=== PATIENT | female | born 1945 | race Caucasian/White ===

== ENCOUNTER 2023-05-03 16:22 | Inpatient (IN) | payer OTHER, SELFPAY ==
[2023-05-03 16:33] VITALS: BP 124/82; PULSE 111; RESP 20; TEMP 36.5; O2SAT 94
--- NOTE | 2023-05-03 16:58 | CT_ITS ---
[address] [address] Patient Name: NORBERTO REICH MRN: [facility]:[id number] date: 1945 Sex: F Assigned Patient Location: MS Current Patient Location: MS Accession/Order Number: [id number] Exam Date: 05/03/2023 17:30 Report Date: 05/03/2023 18:00 At the request of: KAITLIN VAN Procedure: CT head/brain wo con EXAM: CT head/brain wo con; [id number] REASON FOR EXAM: facial droop COMPARISON: None. TECHNIQUE: Axial CT images of the head obtained without contrast. Multiplanar reformats generated at the scanner. Dose reduction technique used: Automated exposure control and/or adjustment of the mA and/or kV according to patient size and/or use of iterative reconstruction technique. FINDINGS: Parenchyma: -Moderate generalized cerebral volume loss. -No midline shift or mass effect. Basilar cisterns are patent. -No acute intracranial hemorrhage. -No loss of cortical frances-white differentiation to indicate acute cortical infarct. Extra-axial spaces: -Moderate CSF attenuation expansion of the extra axial space involving the anterior vertex and left anterior frontal lobe. -No acute extra-axial hemorrhage. Ventricles: Normal in size and symmetric. Paranasal sinuses: Visualized paranasal sinuses are clear. Mastoid air cells: Complete opacification of the right mastoid air cells and partial opacification on the left. Orbits: No acute abnormality. Osseous: No acute findings. Soft tissues: No acute abnormality. IMPRESSION: 1. No acute intracranial abnormality. 2. Moderate low-density expansion of the extra-axial space overlying bilateral frontal lobes. This may represent variant baseline appearance, chronic subdural hematomas, or subdural hygroma. No acute extra-axial hemorrhage. 3. Complete opacification of the right mastoid air cells and partial opacification on the left. Correlate for mastoiditis/otitis media. Electronically authenticated by: ALISSA FAIR Date: 05/03/2023 18:00
[2023-05-03 17:57] LABS: Amylase 65 U/L (25-115)
[2023-05-03 18:12] LABS: Creatine Kinase 162 U/L (26-192); Troponin I High Sensitivity 25.5 pg/mL (4.0-51.3)
[2023-05-03 18:18] LABS: Creatine Kinase MB 23.64 ng/mL (<=3.60)
[2023-05-03 18:22] LABS: Lactate/Lactic Acid 2.9 mmol/L (0.4-2.0)
[2023-05-03] MEDS: LACTATED RINGER'S SOLUTION 1,000 ML 125 ML IV (18:45)
[2023-05-03 18:50] VITALS: BMI 24.9
--- NOTE | 2023-05-03 19:07 | PC.NURSE ---
patients mucous membranes are very dry. Lips have dried blood on them. Scabbing, flaking.
[2023-05-03 19:37] LABS: Adenovirus F 40/41 NOT DETECTED (NOT DETECTE); Astrovirus NOT DETECTED (NOT DETECTE); Campylobacter NOT DETECTED (NOT DETECTE); Cryptosporidium NOT DETECTED (NOT DETECTE); Cyclospora cayetanensis NOT DETECTED (NOT DETECTE); E coli 0157 NOT DETECTED (NOT DETECTE); Entamoeba histolytica NOT DETECTED (NOT DETECTE); Enteroaggregative E.coli NOT DETECTED (NOT DETECTE); Enteropathogenic E.coli NOT DETECTED (NOT DETECTE); Enterotoxigenic E. coli NOT DETECTED (NOT DETECTE); Giardia lamblia NOT DETECTED (NOT DETECTE); Norovirus GI/GII NOT DETECTED (NOT DETECTE); Plesiomonas shigelloides NOT DETECTED (NOT DETECTE); Rotavirus A NOT DETECTED (NOT DETECTE); Salmonella NOT DETECTED (NOT DETECTE); Sapovirus NOT DETECTED (NOT DETECTE); Shiga-like toxin-producing E.C NOT DETECTED (NOT DETECTE); Shigella/Enteroinvasive E.coli NOT DETECTED (NOT DETECTE); Vibrio NOT DETECTED (NOT DETECTE); Vibrio cholerae NOT DETECTED (NOT DETECTE); Yersinia enterocolitica NOT DETECTED (NOT DETECTE)
[2023-05-03 19:47] VITALS: O2SAT 94
[2023-05-03 20:07] LABS: Occult Blood Positive
[2023-05-03 20:37] VITALS: RESP 16
[2023-05-03 22:00] VITALS: BP 120/78; PULSE 49; RESP 18; TEMP 36.4; O2SAT 91
[2023-05-03] MEDS: JUVEN PACKET 1 PACKET PO (22:23)
[2023-05-03] MEDS: POTASSIUM CHLORIDE 10 MEQ ER TABLET PO (22:23)
[2023-05-03] MEDS: SUCRALFATE 1 GM TABLET PO (22:23)
[2023-05-04] VITALS (7 sets, daily range): BP systolic 87–120; BP diastolic 59–73; PULSE 87–109; RESP 18–20; TEMP 36.5–36.6; O2SAT 92–95; BMI 24.9
[2023-05-04] MEDS: LACTATED RINGER'S SOLUTION 1,000 ML 125 ML IV ×2 (03:08→19:46)
[2023-05-04 06:28] LABS: Basophils Percent Auto 0.2 % (0.2-2.0); Eosinophils Percent Auto 0.1 % (0.9-7.0); Hematocrit 28.3 % (36.0-48.0); Hemoglobin 9.2 g/dL (12.0-16.0); Immature Granulocytes Abs Auto 0.28 10^3/uL (0.00-0.03); Immature Granulocytes Pct Auto 2.3 % (0.0-0.5); Lymphocytes Absolute Auto 0.7 10^3/uL (1.2-3.8); Lymphocytes Percent Auto 5.9 % (20.5-60.0); Mean Corpuscular HGB Conc 32.5 g/dL (29.9-35.2); Mean Corpuscular Hemoglobin 27.5 pg (26.7-34.0); Mean Corpuscular Volume 84.7 fL (81.0-99.0); Mean Platelet Volume 10.9 fL (9.5-13.5); Monocytes Absolute Auto 0.5 10^3/uL (0.3-0.8); Monocytes Percent Auto 4.4 % (1.7-12.0); Neutrophils Absolute Auto 10.6 10^3/uL (1.4-6.5); Neutrophils Percent Auto 87.1 % (43.0-75.0); Platelet Count 354 10^3/uL (150-450); Red Blood Count 3.34 10^6/uL (4.20-5.40); Red Cell Distribution Width 18.5 % (11.0-15.0); White Blood Count 12.2 10^3/uL (4.0-11.0)
[2023-05-04] MEDS: OMEPRAZOLE 40 MG CAPSULE.DR PO (06:35)
[2023-05-04 06:41] LABS: Ammonia 33 umol/L (11-32)
--- NOTE | 2023-05-04 09:43 | CT_ITS ---
[address] [address] Patient Name: NORBERTO REICH MRN: [id number] date: 1945 Sex: F Assigned Patient Location: MS Current Patient Location: MS Accession/Order Number: [id number] Exam Date: 05/04/2023 13:40 Report Date: 05/04/2023 14:29 At the request of: KAITLIN VAN Procedure: CT abdomen pelvis w con EXAMINATION: CT abdomen pelvis w con HISTORY: abd pain , liver mass, loss of appetite COMPARISON: MRI abdomen 04/17/2023, CT abdomen pelvis 04/12/2023 TECHNIQUE: Axial, Coronal, and Sagittal images were obtained without and/or with IV contrast as indicated by examination type. Dose reduction techniques were achieved by using automated exposure control and/or adjustment of mA and/or kV according to patient size and/or use of iterative reconstruction technique. FINDINGS: LUNG BASES: Partial consolidation the basilar segments of the lower lobes bilaterally. Small bilateral pleural effusions up to 1.0 cm in thickness on the right. LIVER: Enlarged liver with innumerable hypodense lesions filling the entire liver ranging from less than a centimeter to almost 4 cm in diameter. BILIARY: 2.8 cm calcified stone within the gallbladder, with additional stones suspected. Gallbladder wall thickness within the fundus is at upper limits of normal. No abnormal duct dilation. PANCREAS: No lesion, fluid collection, or abnormal duct dilatation. SPLEEN: No enlargement or focal lesion. ADRENALS: 2.0 cm right adrenal mass with areas of fat density favoring a benign adenoma. KIDNEYS: No mass, obstruction, or calcification. BOWEL/MESENTERY: Nasogastric tube within the stomach. No visible mass, obstruction, or bowel wall thickening. AORTA/VASCULAR: Marked atherosclerotic disease; no aneurysm or dissection. RETROPERITONEUM: No mass or adenopathy. LYMPH NODES: No appreciable adenopathy. URINARY BLADDER: No visible focal wall thickening, lesion, or calculus. PELVIC ORGANS: Hysterectomy. ABDOMINAL WALL: Extensive subcutaneous edema. BONES: Stable grade 2 retrolisthesis of L3 on 4. Multilevel degenerative disc disease and degenerative facet arthropathy of the lumbar spine. OTHER: Small amount of free fluid within the pelvis. IMPRESSION: 1. Moderate bibasilar pulmonary infiltrates versus atelectasis/consolidation, and small bilateral pleural effusions. 2. Markedly enlarged liver with innumerable lesions throughout suggestive of metastatic disease; not appreciably changed.Small amount of free fluid within the abdomen/pelvis is also noted. 3. Cholelithiasis, and borderline acute versus chronic cholecystitis. 4. Stable right adrenal mass suspected to represent a benign adenoma. 5. Marked atherosclerotic disease of aorta. 6. Extensive subcutaneous edema. 7. Degenerative changes of the lumbar spine with grade 2 retrolisthesis of L3 on 4 causing central canal and foramen narrowing. Electronically authenticated by: ELLEN CAIN Date: 05/04/2023 14:29
--- NOTE | 2023-05-04 09:45 | P.HP_ITS ---
H&P: HPI History of Present Illness Chief complaint: WEAKNESS OBS Narrative: Patient was treated at an outside emergency room with increasing weakness. She has been at rehabilitation. Not eating and drinking well. [place] to be dehydrated. Still with significant abdominal pain this morning. Difficulty swallowing, still with some dry mucous membranes [facility] Medical History (Updated 04/30/23 @ 08:05 by Margo Flores) Surgical History (Updated 04/30/23 @ 08:05 by Margo Flores) Meds Home Medications and Allergies Home Medications Medication Instructions Recorded Confirmed Type aspirin 81 mg tablet,delayed 81 mg PO DAILY 04/30/23 04/30/23 History release (Adult Aspirin Regimen) calcium carbonate 500 mg calcium 500 mg PO DAILY 04/30/23 04/30/23 History (1,250 mg) tablet cefdinir PO DAILY UTI for 10 days 04/30/23 History coenzyme Q10 30 mg capsule 30 mg PO DAILY 04/30/23 04/30/23 History dexamethasone 4 mg tablet 4 mg PO DAILY 04/30/23 04/30/23 History taj powder PO BID 04/30/23 History megace PO DAILY 04/30/23 History multivitamin 1 tab PO DAILY 04/30/23 04/30/23 History pantoprazole 40 mg tablet,delayed 40 mg PO DAILY 04/30/23 04/30/23 History release potassium chloride 10 mEq 10 meq PO BID 04/30/23 04/30/23 History tablet,extended release (K-Tab) sucralfate 1 g PO ACHS 04/30/23 04/30/23 History Allergies Allergy/AdvReac Type Severity Reaction Status Date / Time No Known Drug Allergies Allergy Verified 04/30/23 08:02 Exam Constitutional Vital Signs - 24 hr 05/03/23 16:33 05/03/23 16:33 05/03/23 19:47 Temperature 97.7 F Pulse Rate 111 H Respiratory Rate 20 Blood Pressure [Left Arm] 124/82 H Blood Pressure [Right Arm] Pulse Oximetry 94 L 94 L Oxygen Delivery Method Room Air Room Air Room Air 05/03/23 20:37 05/03/23 22:00 05/04/23 04:02 Temperature 97.6 F Pulse Rate 49 L Respiratory Rate 16 18 Blood Pressure [Left Arm] 120/78 H Blood Pressure [Right Arm] Pulse Oximetry 91 L 94 L Oxygen Delivery Method Room Air Room Air 05/04/23 06:00 Temperature 98 F Pulse Rate 106 H Respiratory Rate 18 Blood Pressure [Left Arm] Blood Pressure [Right Arm] 105/70 Pulse Oximetry 92 L Oxygen Delivery Method Room Air Common normals: apparent distress General appearance: frail appearing Nutritional appearance: cachectic Cardio Common normals: regular rate, regular rhythm and S1 normal heart sound GI Common normals: soft to palpation; tender Palpation: tender Results Labs Labs: Short CBC 05/04/23 Range/Units 06:16 WBC 12.2 H (4.0-11.0) 10^3/uL Hgb 9.2 L (12.0-16.0) g/dL Hct 28.3 L (36.0-48.0) % Plt Count 354 (150-450) 10^3/uL Cardiac Enzymes 05/03/23 Range/Units 17:20 Total Creatine Kinase 162 (26-192) U/L CK-MB (CK-2) 23.64 H* (<=3.60) ng/mL Assessment and Plan Assessment and Plan (1) UTI (urinary tract infection): (2) Liver fibrosis: Plan Sinus tachycardia, hypotension, leukocytosis with a positive lactate possibly secondary to recurrence of acute UTI-start antibiotics. Check on urine culture. Significant abdominal pain. She has liver masses. We are trying to get this worked up has been difficult to get it completed. We will check CT scan today.I will call Dysphagia-Please NG tube.I believe we can give medications. Liver mass-biopsy on Sunday if improving. DNR-cc-A for her CODE STATUS. Medical treatment definitely going to last more than 2 midnightsContinue with IV antibiotics, hydration IV andNG tube in place.
[2023-05-04 10:05] LABS: Alanine Aminotransferase 84 U/L (14-59); Albumin Globulin Ratio 0.4; Albumin Level 1.6 g/dL (3.4-5.0); Alkaline Phosphatase 618 U/L (46-116); Amylase 72 U/L (25-115); Anion Gap 24.6; Aspartate Amino Transferase 151 U/L (15-37); BUN Creatinine Ratio 49.4; Calcium 8.7 mg/dL (8.5-10.1); Carbon Dioxide 16.7 mmol/L (21.0-32.0); Chloride 103 mmol/L (98-107); Estimated GFR (African America 35 (>=60); Estimated GFR (Non-African Ame 29 (>=60); Globulin 3.8 g/dL; Glucose 107 mg/dL (74-106); Magnesium 2.2 mg/dL (1.8-2.4); Potassium 4.3 mmol/L (3.5-5.1); Sodium 140 mmol/L (136-145); Total Protein 5.4 g/dL (6.4-8.2)
[2023-05-04] MEDS: CEFTRIAXONE 1,000 MG in 0.9 % SODIUM CHLORIDE 50 ML 100 MG IV ×2 (10:16→21:19)
[2023-05-04] MEDS: ZINC OXIDE 30% CREAM 113.4 GM TUBE 1 APPLIC TOPICAL (10:16)
[2023-05-04] MEDS: CIPROFLOXACIN IN 5 % DEXTROSE 400 MG/200 ML PIGGYBACK 200 MG IV ×2 (10:17→21:50)
--- NOTE | 2023-05-04 10:18 | CM.NOTE ---
Rounds made with Dr. Hoy. Santoyo is currently at [facility]. No plan for discharge today.
--- NOTE | 2023-05-04 10:21 | SWNOTE1 ---
SW spoke with Yuliana at [facility] in admissions. Pt was still skilled there. They would need new referral in order to accept her back, she is a precert and would need approved through her insurance again. SW to speak with family.
--- NOTE | 2023-05-04 13:55 | SWNOTE1 ---
SW spoke with pt and daughter about their discharge plans. Pt was at [facility]. Pt does plan on going to a facility skilled again. Pt and daughter have decided they would like [facility]. SW to send referral and update Dr. Hutchins. Pt is a precert. SW also reviewed IMM form with pt and daughter. They voiced understanding, no questions. Pt's daughter signed form, copy placed in chart and original given to pt.
[2023-05-04 14:51] LABS: C. Difficile PCR NEGATIVE (NEGATIVE)
--- NOTE | 2023-05-04 15:18 | SWNOTE1 ---
SW did reach out to [facility], but they do not have an opening until possibly Sunday. SW to let family know. [facility] will still review and follow up Sunday. DANA let doctor know as well.
--- NOTE | 2023-05-04 16:07 | DIETREC ---
Nutrition Recommendations: Consider initiating nutrition support while NG tube in place and patient unable to meet estimated needs with po intake at this time. H/o severe malnutrition with poor po intake. If enteral nutrition to start, recommend Jevity 1.5 at 10 ml/hr. Increase by 10-15 mL Q 6-8 hours as tolerated to initial goal of 35 ml/hr. RD following
[2023-05-04 17:31] LABS: Bilirubin Urine SMALL (NEGATIVE); Blood Urine NEGATIVE (NEGATIVE); Clarity Urine CLEAR (CLEAR); Color Urine YELLOW (YELLOW); Glucose Urine UA NEGATIVE (NEGATIVE); Ketones Urine NEGATIVE (NEGATIVE); Leukocyte Esterase Urine NEGATIVE (NEGATIVE); Nitrite Urine NEGATIVE (NEGATIVE); Protein Urine TRACE mg/dL (NEG/TRACE); Urobilinogen Urine 0.2 EU/dL (0.2-1.0); pH Urine 5.5 (5.0-9.0)
[2023-05-04 17:44] LABS: Bacteria Urine NONE SEEN #/HPF (NONE SEEN); Mucus Urine NONE SEEN (NONE SEEN); RBC Urine NONE SEEN #/HPF (0-2); Squamous Epithelial Cell Urine FEW #/LPF (NONE/RARE); Urine Microscopic Indicated NO; WBC Urine NONE SEEN #/HPF (NONE SEEN)
[2023-05-04 17:45] LABS: Cast Seen? SEEN #/LPF (NONE SEEN); Crystals Seen? None Seen #/HPF (None Seen); Hyaline Casts Urine RARE; Urine Culture Indicated NO
[2023-05-05 06:00] VITALS: BP 113/76; PULSE 108; RESP 18; TEMP 36.4; O2SAT 93
[2023-05-05 06:23] LABS: Basophils Percent Auto 0.2 % (0.2-2.0); Eosinophils Percent Auto 0.2 % (0.9-7.0); Hemoglobin 8.2 g/dL (12.0-16.0); Immature Granulocytes Abs Auto 0.37 10^3/uL (0.00-0.03); Lymphocytes Absolute Auto 0.8 10^3/uL (1.2-3.8); Lymphocytes Percent Auto 6.5 % (20.5-60.0); Mean Corpuscular HGB Conc 32.8 g/dL (29.9-35.2); Mean Corpuscular Hemoglobin 27.3 pg (26.7-34.0); Mean Corpuscular Volume 83.3 fL (81.0-99.0); Mean Platelet Volume 11.2 fL (9.5-13.5); Monocytes Absolute Auto 0.6 10^3/uL (0.3-0.8); Monocytes Percent Auto 4.9 % (1.7-12.0); Neutrophils Absolute Auto 10.4 10^3/uL (1.4-6.5); Neutrophils Percent Auto 85.2 % (43.0-75.0); Platelet Count 339 10^3/uL (150-450); Red Cell Distribution Width 18.6 % (11.0-15.0); White Blood Count 12.2 10^3/uL (4.0-11.0)
[2023-05-05] MEDS: LACTATED RINGER'S SOLUTION 1,000 ML 125 ML IV (06:30)
[2023-05-05 06:38] LABS: Ammonia 19 umol/L (11-32)
[2023-05-05 06:47] LABS: Alanine Aminotransferase 91 U/L (14-59); Albumin Globulin Ratio 0.4; Albumin Level 1.6 g/dL (3.4-5.0); Alkaline Phosphatase 571 U/L (46-116); Amylase 68 U/L (25-115); Anion Gap 14.1; Aspartate Amino Transferase 130 U/L (15-37); BUN Creatinine Ratio 46.8; Calcium 8.5 mg/dL (8.5-10.1); Carbon Dioxide 15.6 mmol/L (21.0-32.0); Chloride 108 mmol/L (98-107); Estimated GFR (African America 32 (>=60); Estimated GFR (Non-African Ame 26 (>=60); Globulin 3.6 g/dL; Glucose 109 mg/dL (74-106); Potassium 3.7 mmol/L (3.5-5.1); Sodium 134 mmol/L (136-145); Total Protein 5.2 g/dL (6.4-8.2)
--- NOTE | 2023-05-05 08:45 | P.PN_ITS ---
Exam Constitutional Vital Signs - 24 hr 05/04/23 14:00 05/04/23 11:48 05/04/23 20:00 Temperature 97.8 F 97.7 F Pulse Rate 109 H 87 Respiratory Rate 18 19 Blood Pressure [Left Arm] 120/68 H Blood Pressure [Right Arm] 103/73 Pulse Oximetry 95 94 L 94 L Oxygen Delivery Method Room Air Room Air Room Air 05/04/23 19:48 05/04/23 21:49 05/05/23 06:00 Temperature 97.9 F 97.6 F Pulse Rate 109 H 108 H Respiratory Rate 20 18 Blood Pressure [Left Arm] 87/59 L 113/76 Blood Pressure [Right Arm] Pulse Oximetry 95 94 L 93 L Oxygen Delivery Method Room Air Room Air Room Air Progress Note: Objective Labs Labs: Short CBC 05/05/23 Range/Units 04:35 WBC 12.2 H (4.0-11.0) 10^3/uL Hgb 8.2 L (12.0-16.0) g/dL Hct 25.0 L (36.0-48.0) % Plt Count 339 (150-450) 10^3/uL BMP 05/04/23 05/05/23 06:16 04:35 Sodium 140 134 L Potassium 4.3 3.7 Chloride 103 108 H Carbon Dioxide 16.7 L 15.6 L BUN 85.0 H* 87.0 H* Creatinine 1.72 H 1.86 H Glucose 107 H 109 H Calcium 8.7 8.5 Liver Function 05/04/23 05/05/23 Range/Units 06:16 04:35 Total Bilirubin 2.0 H 2.0 H (0.2-1.0) mg/dL AST 151 H 130 H (15-37) U/L ALT 84 H 91 H (14-59) U/L Alkaline Phosphatase 618 H 571 H (46-116) U/L Albumin 1.6 L 1.6 L (3.4-5.0) g/dL Urine 05/03/23 Range/Units 16:40 Urine Color Yellow (YELLOW) Urine Clarity Clear (CLEAR) Urine pH 5.5 (5.0-9.0) Ur Specific [place] 1.010 (1.005-1.025) Urine Protein Trace (NEG/TRACE) mg/dL Urine Glucose (UA) Negative (NEGATIVE) mg/dL Progress Note: A&P Assessment and Plan (1) UTI (urinary tract infection): (2) Liver fibrosis: (3) Anemia: (4) UGI bleed: Plan Sinus tachycardia, hypotension, leukocytosis with a positive lactate possibly secondary to recurrence of acute UTI-start antibiotics.? Check on urine culture.-Blood pressure better, white blood cell count unchanged, abdomen with less tenderness still maintain current treatment plan Significant abdominal pain.? She has liver masses.? We are trying to get this worked up has been difficult to get it completed.? We will check CT scan today.I will call-See above Dysphagia-Please NG tube.I believe we can give medications. elevated liver function test with Liver mass-biopsy on Sunday if overall improving. severe protein calorie malnutrition- start tube feeds today since the tube is already in, if she is feeling better may try swallowing tomorrow severe anemia-possible acute upper GI bleed with positive occult blood-repeat CBC later today. If less than 8 will need to transfuse 2 units elevated high-sensitivity troponin likely a complication of her severe protein calorie malnutrition and her acute kidney injury- creatinine is up slightly today, DNR-cc-A for her CODE STATUS. Medical treatment definitely going to last more than ?2 midnightsContinue with IV antibiotics, hydration IV andNG tube in place.
--- NOTE | 2023-05-05 09:28 | PT.DAILY ---
Physical Therapy Daily Note PT Daily Note/Assess Start: 05/05/23 09:17 Freq: Status: Active Protocol: Document 05/05/23 08:40 ESHUKENZIE (Rec: 05/05/23 09:26 ESHUKENZIE [id number]) Physical Therapy Daily Note/Assessment Time In/Time Out Time In 08:40 Time Out 09:05 Pain In Pain N/A Pain Out Pain N/A Subjective Subjective Patient is hard to understand at time. Agrees to PT. Denies pain but several times throughout RX shows grimace and signs of being uncomfortable. Therapeutic Exercise Time Therapeutic Exercise Minutes (minutes) 10 Therapeutic Exercise Units 1 Therapeutic Exercise Treatment Therapeutic Exercise Treatment Completed neck rotations with AAROM; patient looking to R per nursing could not get her to rotate to midline. Supine B LE strengthening 10 reps with isometrics and AAROM, patient unable to complete AROM but does put forth maximum effort in trying. Therapeutic Activity Time Therapeutic Activity Minutes (minutes) 15 Therapeutic Activity Units 1 Therapeutic Activity Treatment Bed Mobility Ability Maximum Assist Therapeutic Activity Comments Supine to sit max assist. EOB sitting mod to max assist to hold midline. Significant lean to R. Patient tries very hard to assist. After 3 min of EOB sitting fatigues quickly, and needs to lye back down. Sit to supine max assist. Once repositioned is holding neck in more neutral position supine. Total Physical Therapy Time Total Therapy Minutes 25 Total Physical Therapy Units 2 Summary Daily Note Summary Overall patient tries very hard with therapy today. Due to weakness and fatigue requires increased assistance with most activities. At this time patient was unsafe to attempt chair transfer due to significant assistance and unable to hold self up sitting EOB. Patient is motivated to work hard and get stronger. Plan for SNF at [place] for strengthening.
[2023-05-05] MEDS: CIPROFLOXACIN IN 5 % DEXTROSE 400 MG/200 ML PIGGYBACK 200 MG IV ×2 (11:39→21:13)
[2023-05-05] MEDS: CEFTRIAXONE 1,000 MG in 0.9 % SODIUM CHLORIDE 50 ML 100 MG IV ×2 (11:40→21:16)
[2023-05-05] MEDS: JUVEN PACKET 1 PACKET PO (11:41)
[2023-05-05] MEDS: DEXAMETHASONE 4 MG TABLET PO (11:41)
[2023-05-05] MEDS: PANTOPRAZOLE SODIUM 40 MG VIAL IV (11:41)
[2023-05-05] MEDS: SUCRALFATE 1 GM TABLET PO (11:42)
[2023-05-05] MEDS: MEGESTROL ACETATE 400 MG/10 ML ORAL.SUSP PO (11:42)
[2023-05-05] MEDS: POTASSIUM CHLORIDE 10 MEQ ER TABLET PO (11:43)
[2023-05-05] MEDS: MULTIVITAMIN TABLET 400 TAB PO (11:43)
[2023-05-05 11:45] VITALS: O2SAT 93
[2023-05-05 12:39] LABS: Basophils Percent Auto 0.2 % (0.2-2.0); Eosinophils Percent Auto 0.1 % (0.9-7.0); Hematocrit 24.7 % (36.0-48.0); Hemoglobin 8.1 g/dL (12.0-16.0); Immature Granulocytes Abs Auto 0.58 10^3/uL (0.00-0.03); Immature Granulocytes Pct Auto 4.4 % (0.0-0.5); Lymphocytes Absolute Auto 0.8 10^3/uL (1.2-3.8); Lymphocytes Percent Auto 5.7 % (20.5-60.0); Mean Corpuscular HGB Conc 32.8 g/dL (29.9-35.2); Mean Corpuscular Hemoglobin 27.8 pg (26.7-34.0); Mean Corpuscular Volume 84.9 fL (81.0-99.0); Mean Platelet Volume 10.7 fL (9.5-13.5); Monocytes Absolute Auto 0.6 10^3/uL (0.3-0.8); Monocytes Percent Auto 4.4 % (1.7-12.0); Neutrophils Absolute Auto 11.3 10^3/uL (1.4-6.5); Neutrophils Percent Auto 85.2 % (43.0-75.0); Platelet Count 307 10^3/uL (150-450); Red Blood Count 2.91 10^6/uL (4.20-5.40); Red Cell Distribution Width 18.9 % (11.0-15.0); White Blood Count 13.3 10^3/uL (4.0-11.0)
[2023-05-05 14:00] VITALS: BP 104/72; PULSE 109; RESP 22; TEMP 36.8; O2SAT 92
[2023-05-05] MEDS: HYOSCYAMINE SULFATE 0.125 MG TAB.SUBL 0.25 MG SL (18:18)
[2023-05-05] MEDS: LACTATED RINGER'S SOLUTION 1,000 ML 60 ML IV (19:21)
[2023-05-05 19:47] VITALS: O2SAT 95
[2023-05-05 20:00] VITALS: BP 87/57; PULSE 111; RESP 20; TEMP 37.2; O2SAT 91
[2023-05-06] VITALS (13 sets, daily range): BP systolic 72–109; BP diastolic 45–70; PULSE 92–118; RESP 18–24; TEMP 36.5–37.1; O2SAT 20–979
[2023-05-06 04:50] LABS: Ammonia 28 umol/L (11-32); Hemoglobin 7.6 g/dL (12.0-16.0); Mean Corpuscular HGB Conc 32.9 g/dL (29.9-35.2); Mean Corpuscular Hemoglobin 27.9 pg (26.7-34.0); Mean Corpuscular Volume 84.9 fL (81.0-99.0); Mean Platelet Volume 10.6 fL (9.5-13.5); Platelet Count 283 10^3/uL (150-450); Red Blood Count 2.72 10^6/uL (4.20-5.40); Red Cell Distribution Width 19.3 % (11.0-15.0); White Blood Count 14.5 10^3/uL (4.0-11.0)
[2023-05-06 04:58] LABS: Hematocrit 23.1 % (36.0-48.0)
[2023-05-06 04:59] LABS: Alanine Aminotransferase 81 U/L (14-59); Albumin Globulin Ratio 0.4; Albumin Level 1.4 g/dL (3.4-5.0); Alkaline Phosphatase 604 U/L (46-116); Aspartate Amino Transferase 104 U/L (15-37); BUN Creatinine Ratio 40.4; Bilirubin Total 2.1 mg/dL (0.2-1.0); Calcium 8.5 mg/dL (8.5-10.1); Carbon Dioxide 15.6 mmol/L (21.0-32.0); Chloride 101 mmol/L (98-107); Estimated GFR (African America 26 (>=60); Estimated GFR (Non-African Ame 21 (>=60); Globulin 3.6 g/dL; Glucose 156 mg/dL (74-106); Potassium 3.6 mmol/L (3.5-5.1); Sodium 136 mmol/L (136-145)
[2023-05-06 05:08] LABS: Amylase 62 U/L (25-115); Magnesium 1.9 mg/dL (1.8-2.4)
[2023-05-06] MEDS: PANTOPRAZOLE SODIUM 40 MG VIAL IV ×2 (05:32→21:26)
[2023-05-06 05:51] LABS: Band Neutrophils Absolute 1.9 10^3/uL (0.0-0.3); Lymphocytes Absolute Manual 1.74 10^3/uL (1.20-3.80); Monocytes Absolute Manual 0.29 10^3/uL (0.30-0.80); Segmented Neut Absolute Manual 10.44 10^3/uL (1.4-6.5)
[2023-05-06 05:52] LABS: Anisocytosis 3+; Hypochromasia 2+
[2023-05-06] MEDS: MEGESTROL ACETATE 400 MG/10 ML ORAL.SUSP PO (09:48)
[2023-05-06] MEDS: DEXAMETHASONE 4 MG TABLET PO (09:48)
[2023-05-06] MEDS: POTASSIUM CHLORIDE 10 MEQ ER TABLET PO (09:48)
[2023-05-06] MEDS: MULTIVITAMIN TABLET 400 TAB PO (09:48)
[2023-05-06] MEDS: SUCRALFATE 1 GM TABLET PO (09:49)
[2023-05-06] MEDS: HYOSCYAMINE SULFATE 0.125 MG TAB.SUBL 0.25 MG SL (09:49)
[2023-05-06] MEDS: JUVEN PACKET 1 PACKET PO (09:49)
[2023-05-06] MEDS: CEFTRIAXONE 1,000 MG in 0.9 % SODIUM CHLORIDE 50 ML 100 MG IV (09:49)
[2023-05-06] MEDS: 0.9 % SODIUM CHLORIDE 250 ML 100 ML IV (09:52)
--- NOTE | 2023-05-06 10:27 | P.PN_ITS ---
Progress Note: Subjective Subjective Interval history: Still severely weak. Possibly worse than yesterday. Exam Constitutional Vital Signs - 24 hr 05/05/23 11:45 05/05/23 14:00 05/05/23 19:47 Temperature 98.2 F Pulse Rate 109 H Respiratory Rate 22 Blood Pressure [Right Arm] 104/72 Pulse Oximetry 93 L 92 L 95 Oxygen Delivery Method Room Air Room Air Room Air 05/05/23 20:00 05/06/23 05:51 Temperature 99 F 98 F Pulse Rate 111 H 118 H Respiratory Rate 20 18 Blood Pressure [Right Arm] 87/57 L 98/65 Pulse Oximetry 91 L 91 L Oxygen Delivery Method Room Air Room Air Common normals: no apparent distress Nutritional appearance: cachectic and thin HENMT Common normals: oral mucous membranes not moist (But better than before) Chest Common normals: inspection of chest normal Respiratory Common normals: normal respiratory effort, no use of accessory muscles and clear to auscultation bilaterally Cardio Common normals: regular rhythm; irregular rate (Tachycardia) GI Common normals: soft to palpation, non-tender and no masses Progress Note: Objective Labs Labs: Short CBC 05/05/23 05/06/23 Range/Units 12:24 04:28 WBC 13.3 H 14.5 H (4.0-11.0) 10^3/uL Hgb 8.1 L 7.6 L (12.0-16.0) g/dL Hct 24.7 L 23.1 L* (36.0-48.0) % Plt Count 307 283 (150-450) 10^3/uL BMP 05/06/23 04:28 Sodium 136 Potassium 3.6 Chloride 101 Carbon Dioxide 15.6 L BUN 90.0 H* Creatinine 2.23 H Glucose 156 H Calcium 8.5 Liver Function 05/06/23 Range/Units 04:28 Total Bilirubin 2.1 H (0.2-1.0) mg/dL AST 104 H (15-37) U/L ALT 81 H (14-59) U/L Alkaline Phosphatase 604 H (46-116) U/L Albumin 1.4 L (3.4-5.0) g/dL Progress Note: A&P Assessment and Plan (1) UTI (urinary tract infection): (2) Liver fibrosis: (3) Anemia: (4) UGI bleed: Plan Sinus tachycardia, hypotension, leukocytosis with a positive lactate possibly secondary to recurrence of acute UTI- White blood cell count elevated-we will change antibiotics today. Significant abdominal pain.? She has liver masses.? Plan for biopsy in a.m. Dysphagia-Patient not tolerating NG tube feeds. For patient comfort would not hold the NG tube, let things rest for today and have speech therapy work with her tomorrow elevated liver function test with Liver mass-biopsy on Sunday -With elevated liver function test and patient's overall continued deterioration is site medical management, prognosis is poor severe protein calorie malnutrition- start tube feeds today since the tube is already in, if she is feeling better may try swallowing tomorrow severe anemia-possible acute upper GI bleed with positive occult blood-Repeat blood count yesterday was pretty stable, but lower today. Transfuse 2 units elevated BNP likely a complication of her severe protein calorie malnutrition and her acute kidney injury- creatinine is up slightly today, Chronic kidney disease stage II-deteriorated, likely to improve with transfusion today. Repeat in a.m. DNR-cc-A for her CODE STATUS. Medical treatment definitely going to last more than ?2 midnights Continue with IV antibiotics, hydration IV
--- NOTE | 2023-05-06 10:27 | PT.DAILY ---
Physical Therapy Daily Note PT Daily Note/Assess Start: 05/05/23 09:17 Freq: Status: Active Protocol: Document 05/06/23 10:25 ANTHONY (Rec: 05/06/23 10:26 ANTHONY [id number]) Visit Not Completed Visit Not Completed Visit Not Completed Due to: Nursing request to hold Other Reason Visit Not Completed Per nursing patient is declining, not doing well today. Biopsy is scheduled for tomorrow. Okay to hold PT RX today. POC is 5-7x a week. Physical Therapy Daily Note/Assessment Time In/Time Out Time In 10:10 Time Out 10:15 GG. Functional Abilities and Goals-Complete for Swing Bed Patients Only [id number]. Self-Care [id number]. Mobility
[2023-05-06] MEDS: PIPERACILLIN SODIUM/TAZOBACTAM 3.375 GM in 0.9 % SODIUM CHLORIDE 50 ML IV ×2 (10:40→21:24)
[2023-05-06] MEDS: DIPHENHYDRAMINE HCL 50 MG/ML (1ML) VIAL 25 MG IV (15:07)
[2023-05-06] MEDS: ACETAMINOPHEN 1,000 MG/100 ML PREMIX 400 MG IV (15:07)
[2023-05-06] MEDS: FUROSEMIDE 40 MG/4 ML VIAL 20 MG IV (17:26)
[2023-05-06] MEDS: LACTATED RINGER'S SOLUTION 1,000 ML 60 ML IV (21:25)
[2023-05-07] VITALS (83 sets, daily range): BP systolic 78–115; BP diastolic 0–71; PULSE 71–100; RESP 16–20; TEMP 35.6–36.6; O2SAT 94–100
[2023-05-07 05:17] LABS: Basophils Percent Auto 0.3 % (0.2-2.0); Eosinophils Percent Auto 0.2 % (0.9-7.0); Hematocrit 28.4 % (36.0-48.0); Hemoglobin 9.5 g/dL (12.0-16.0); Immature Granulocytes Abs Auto 0.91 10^3/uL (0.00-0.03); Immature Granulocytes Pct Auto 5.7 % (0.0-0.5); Lymphocytes Percent Auto 6.4 % (20.5-60.0); Mean Corpuscular HGB Conc 33.5 g/dL (29.9-35.2); Mean Corpuscular Hemoglobin 27.8 pg (26.7-34.0); Mean Platelet Volume 10.6 fL (9.5-13.5); Monocytes Absolute Auto 0.6 10^3/uL (0.3-0.8); Monocytes Percent Auto 3.4 % (1.7-12.0); Neutrophils Absolute Auto 13.4 10^3/uL (1.4-6.5); Platelet Count 178 10^3/uL (150-450); Red Blood Count 3.42 10^6/uL (4.20-5.40); Red Cell Distribution Width 19.2 % (11.0-15.0)
[2023-05-07 05:33] LABS: Ammonia 36 umol/L (11-32)
[2023-05-07 05:37] LABS: Alanine Aminotransferase 88 U/L (14-59); Albumin Globulin Ratio 0.4; Albumin Level 1.4 g/dL (3.4-5.0); Alkaline Phosphatase 585 U/L (46-116); Amylase 57 U/L (25-115); Anion Gap 22.3; Aspartate Amino Transferase 119 U/L (15-37); BUN Creatinine Ratio 44.9; Bilirubin Total 5.6 mg/dL (0.2-1.0); Calcium 8.7 mg/dL (8.5-10.1); Carbon Dioxide 16.4 mmol/L (21.0-32.0); Chloride 103 mmol/L (98-107); Estimated GFR (African America 24 (>=60); Estimated GFR (Non-African Ame 20 (>=60); Globulin 3.4 g/dL; Glucose 155 mg/dL (74-106); Potassium 3.7 mmol/L (3.5-5.1); Sodium 138 mmol/L (136-145); Total Protein 4.8 g/dL (6.4-8.2)
--- NOTE | 2023-05-07 07:54 | P.PN_ITS ---
Progress Note: Subjective Subjective Interval history: Still severely weak. Looks more dehydrated today Exam Constitutional Vital Signs - 24 hr 05/06/23 11:15 05/06/23 13:49 05/06/23 15:43 Temperature 98.0 F 98.8 F Pulse Rate 109 H 110 H Respiratory Rate 24 24 Blood Pressure 72/45 L Blood Pressure [Right Arm] 100/65 Pulse Oximetry 94 L 95 93 L Oxygen Delivery Method Room Air Room Air Room Air Oxygen Delivery Flow Rate 05/06/23 15:47 05/06/23 15:59 05/06/23 16:59 Temperature 98.4 F 98.3 F Pulse Rate 108 H 104 H Respiratory Rate 24 24 Blood Pressure 92/61 88/58 L 96/64 Blood Pressure [Right Arm] Pulse Oximetry 94 L 97 Oxygen Delivery Method Room Air Room Air Oxygen Delivery Flow Rate 05/06/23 18:10 05/06/23 18:31 05/06/23 19:18 Temperature 98.3 F 98.7 F 98.4 F Pulse Rate 109 H 103 H 102 H Respiratory Rate 24 24 Blood Pressure 109/70 107/67 102/65 Blood Pressure [Right Arm] Pulse Oximetry 979 H 95 20 L Oxygen Delivery Method Room Air Room Air Room Air Oxygen Delivery Flow Rate 05/06/23 20:30 05/06/23 22:16 05/06/23 23:30 Temperature 97.7 F 97.8 F Pulse Rate 98 H 92 H Respiratory Rate 20 20 Blood Pressure 90/51 L 92/50 L Blood Pressure [Right Arm] Pulse Oximetry 90 L Oxygen Delivery Method Room Air Room Air Room Air Oxygen Delivery Flow Rate 96 96 05/07/23 04:31 Temperature 98 F Pulse Rate 100 H Respiratory Rate 20 Blood Pressure Blood Pressure [Right Arm] 101/65 Pulse Oximetry 95 Oxygen Delivery Method Room Air Oxygen Delivery Flow Rate HENMT Common normals: oral mucous membranes not moist (Dry) and oropharynx not normal Chest Common normals: inspection of chest normal Respiratory Auscultation: not clear to auscultation bilaterally (Upper airway noises) Cardio Common normals: murmurs detected (3/6 systolic ejection murmur) GI Common normals: Normal to inspection, nondistended, normoactive bowel sounds present Palpation: tender Details: LUQ Progress Note: Objective Labs Labs: Short CBC 05/07/23 Range/Units 05:11 WBC 16.0 H (4.0-11.0) 10^3/uL Hgb 9.5 L (12.0-16.0) g/dL Hct 28.4 L (36.0-48.0) % Plt Count 178 (150-450) 10^3/uL BMP 05/07/23 05:11 Sodium 138 Potassium 3.7 Chloride 103 Carbon Dioxide 16.4 L BUN 106.0 H* Creatinine 2.36 H Glucose 155 H Calcium 8.7 Liver Function 05/07/23 Range/Units 05:11 Total Bilirubin 5.6 H (0.2-1.0) mg/dL AST 119 H (15-37) U/L ALT 88 H (14-59) U/L Alkaline Phosphatase 585 H (46-116) U/L Albumin 1.4 L (3.4-5.0) g/dL Progress Note: A&P Assessment and Plan (1) UTI (urinary tract infection): (2) Liver fibrosis: (3) Anemia: (4) UGI bleed: Plan Sinus tachycardia, hypotension, leukocytosis with a positive lactate possibly secondary to recurrence of acute UTI- Elevated again today, will add back fluoroquinolone for gram-negative coverage Significant abdominal pain.? Her pain has been pretty much resolved, butrecurred, check labs later today, still working on plan for biopsy of liver today Dysphagia-Patient not tolerating NG tube feeds. Speech therapy to work with patient today elevated liver function test with Liver mass-Probable biopsy today severe protein calorie malnutrition- start tube feeds today since the tube is already in, if she is feeling better may try swallowing tomorrow severe anemia-possible acute upper GI bleed with positive occult blood-Repeat blood count yesterday was pretty stable, but lower today. Transfuse 2 units elevated BNP likely a complication of her severe protein calorie malnutrition and her acute kidney injury- Repeat later today Chronic kidney disease stage II-deteriorated, Fluid bolus today, repeat lab later today DNR-cc-A for her CODE STATUS. Medical treatment definitely going to last more than ?2 midnights Continue with IV antibiotics, hydration IV
--- NOTE | 2023-05-07 08:46 | US_ITS ---
The [address] [address] Patient Name: NORBERTO REICH MRN: [id number] date: 1945 Sex: F Assigned Patient Location: MS Current Patient Location: Accession/Order Number: [id number] Exam Date: 05/07/2023 08:50 Report Date: 05/07/2023 12:00 At the request of: KAITLIN VAN Procedure: US biopsy liver EXAMINATION: US biopsy liver HISTORY: liver mass COMPARISON: CT abdomen pelvis 05/04/2023 TECHNIQUE: After obtaining informed consent, ultrasound-guided fine needle aspiration was performed in the usual sterile manner. FINDINGS: IMAGING: Ultrasound. BIOPSY NEEDLE: 18-gauge spring-loaded core biopsy needle inserted through the needle guide; 3 samples obtained. LOCATION: Anterior margin of lower anterior right hepatic lobe, cephalad to the umbilicus. SPECIMEN TYPE: Cellular tissue. LOCAL ANESTHETIC: Buffered Xylocaine. COMPLICATIONS: None. LABORATORY: Prepared slide smears and washings for cell block evaluation. OTHER: Negative. PATHOLOGY: Pending. An addendum will be added when results are available. IMPRESSION: 1. Ultrasound-guided liver biopsy. 2. Pathology results are pending. 3. Postbiopsy bleeding of the liver with accumulation of moderate to large amount of blood products within the abdomen and pelvis despite extensive application of pressure and biopsy site. Patient's blood pressure has remained lobe, but steady. IV access has been gained and fluid is being administered. CT ABDOMEN AND PELVIS was performed post biopsy, and will be repeated 1 hour after initial imaging to assess if fluid is increasing or remain stable. Patient remains within the radiology department under constant monitoring. Electronically authenticated by: ELLEN CAIN Date: 05/07/2023 12:00
--- NOTE | 2023-05-07 10:36 | SWNOTE1 ---
Updates sent to [facility]. to check with nursing and pt/family to see if plan is still to go skilled at [facility].
--- NOTE | 2023-05-07 10:48 | CT_ITS ---
[address] [address] Patient Name: NORBERTO REICH MRN: [id number] date: 1945 Sex: F Assigned Patient Location: MS Current Patient Location: MS Accession/Order Number: [id number] Exam Date: 05/07/2023 10:50 Report Date: 05/07/2023 11:54 At the request of: KAITLIN VAN Procedure: CT abdomen pelvis wo con EXAMINATION: CT abdomen pelvis wo con HISTORY: Post Biopsy Post Biopsy COMPARISON: No relevant comparison available. TECHNIQUE: Axial, Coronal, and Sagittal images were obtained without and/or with IV contrast as indicated by examination type. Dose reduction techniques were achieved by using automated exposure control and/or adjustment of mA and/or kV according to patient size and/or use of iterative reconstruction technique. FINDINGS: LUNG BASES: Small right pleural effusion, 1.1 cm in thickness, unchanged. LIVER: Enlarged, markedly heterogeneous liver with innumerable nodules/masses throughout the liver. Mixed density free fluid along right lateral margin of liver, undersurface, paracolic gutter, and within pelvis. BILIARY: Large stones within the gallbladder and borderline wall thickening of the gallbladder; unchanged. PANCREAS: No lesion, fluid collection, or abnormal duct dilatation. SPLEEN: No enlargement or focal lesion. ADRENALS: Stable 2.0 cm right adrenal mass suspected to represent a benign adenoma. KIDNEYS: Contrast enhanced kidneys without appreciable mass, hydronephrosis, or stones. BOWEL/MESENTERY: No visible mass, obstruction, or bowel wall thickening. AORTA/VASCULAR: No aneurysm or dissection. RETROPERITONEUM: No mass or adenopathy. LYMPH NODES: No adenopathy. URINARY BLADDER: Radiopaque contrast within urinary bladder; Harris catheter in place. PELVIC ORGANS: Hysterectomy. ABDOMINAL WALL: No mass or hernia. BONES: Grade 1 retrolisthesis of L3 on 4 and multilevel degenerative disc disease. OTHER: Subcutaneous edema throughout the abdominal wall and flanks. IMPRESSION: 1.Postbiopsymoderate amount of free fluid within the abdomen and pelvis, most consistent with blood products. Pressure will be held at biopsy site and CT imaging of abdomen and pelvis repeated in one hour to document stability versus increasing fluid attenuation. 2. Contrast [present within kidneys and urinary bladder from CT study performed 3 days ago suggesting very slow renal clearing. 3. Stable small right pleural effusion. 4. Stable cholelithiasis, right adrenal adenoma, and degenerative changes of lumbar spine. Findings discussed with Dr. Rubio via telephone. Electronically authenticated by: ELLEN CAIN Date: 05/07/2023 11:54
--- NOTE | 2023-05-07 11:10 | REH.PTDLY ---
Physical Therapy Daily Note PT Daily Note/Assess Start: 05/05/23 09:17 Freq: Status: Active Protocol: Document 05/07/23 11:08 LAURA (Rec: 05/07/23 11:10 LAURA [id number]) Visit Not Completed Visit Not Completed Due to: Pt out of room Other Reason Visit Not Completed Pt having biopsy done this morning, checked in several times and pt continues to be out of room and unavailable Physical Therapy Daily Note/Assessment Time In 11:00 Time Out 11:01
--- NOTE | 2023-05-07 11:57 | CT_ITS ---
[address] [address] Patient Name: NORBERTO REICH MRN: [id number] date: 1945 Sex: F Assigned Patient Location: MS Current Patient Location: MS Accession/Order Number: [id number] Exam Date: 05/07/2023 11:50 Report Date: 05/07/2023 12:51 At the request of: KAITLIN HUTCHINS Procedure: CT abdomen pelvis wo con EXAMINATION: CT abdomen pelvis wo con HISTORY: POST BIOPSY ; follow-up intra-abdominal bleeding COMPARISON: CT abdomen pelvis 05/07/2023 10:54 AM, CT abdomen pelvis 05/04/2023 TECHNIQUE: Axial, Coronal, and Sagittal images were obtained without and/or with IV contrast as indicated by examination type. Dose reduction techniques were achieved by using automated exposure control and/or adjustment of mA and/or kV according to patient size and/or use of iterative reconstruction technique. FINDINGS: LUNG BASES: Stable small right pleural effusion. LIVER: Grossly stable enlarged markedly heterogeneous liver with innumerable nodules suspected represent metastatic disease. Grossly stable large amount of fluid along margins of liver, within the right paracolic gutter, and within the pelvis suspected represent a mixture of blood products and peritoneal fluid. BILIARY: Large stones within the gallbladder. PANCREAS: No lesion, fluid collection, or abnormal duct dilatation. SPLEEN: No enlargement or focal lesion. ADRENALS: Stable right adrenal mass. KIDNEYS: No mass, obstruction, or calcification. BOWEL/MESENTERY: No visible mass, obstruction, or bowel wall thickening. AORTA/VASCULAR: No aneurysm or dissection. RETROPERITONEUM: No mass or adenopathy. LYMPH NODES: No adenopathy. URINARY BLADDER: Harris catheter and radiopaque contrast within urinary bladder. PELVIC ORGANS: Hysterectomy. ABDOMINAL WALL: No mass or hernia. BONES: Stable degenerative changes of lumbar spine. No acute abnormality. OTHER: Prominent subcutaneous edema throughout abdominal wall and flanks. IMPRESSION: 1.Grossly stable large amount of free intraperitoneal fluid consistent with post liver biopsy hemorrhage which appears to be intermixed with small amount of intraperitoneal simple fluid. 2. Remainder of abdomen and pelvic findings also appears stable. Biopsy and postprocedural findings discussed with Dr. Hutchins via telephone prior to dictation. Electronically authenticated by: ELLEN CAIN Date: 05/07/2023 12:51
--- NOTE | 2023-05-07 12:52 | CT_ITS ---
The [address] [address] Patient Name: NORBERTO REICH MRN: [employer]:[id number] date: 1945 Sex: F Assigned Patient Location: ICU Current Patient Location: ICU Accession/Order Number: [id number] Exam Date: 05/07/2023 18:30 Report Date: 05/07/2023 19:50 At the request of: KAITLIN VAN Procedure: CT abdomen pelvis wo con EXAM: CT abdomen pelvis wo con TECHNIQUE: Axial CT images were obtained of the abdomen and pelvis without intravenous contrast. Sagittal and coronal reformatted images were also obtained. Dose reduction techniques were achieved by using automated exposure control and/or adjustment of mA and/or kV according to patient size and/or use of iterative reconstruction technique. HISTORY: once bp stabilized COMPARISON: 05/07/2023 at 11:54 AM FINDINGS: Lower chest: Patchy bilateral lower lung airspace disease. Small bilateral pleural effusions. Liver: Extensive metastatic disease throughout the liver, poorly evaluated on this noncontrast study. Gallbladder: Large calcified stone of the gallbladder. No biliary dilatation. Pancreas: The pancreas is homogeneous without evidence for mass lesion or inflammation. Spleen: The spleen is unremarkable without evidence for mass lesion. Adrenal glands: Stable right adrenal mass lesion. Kidneys and bladder: Small benign cyst of the left kidney. Unremarkable right kidney. The ureters demonstrate normal caliber. Urinary bladder is collapsed around a Harris catheter. GI Tract: Stomach is unremarkable. Visualized small bowel is unremarkable without evidence for obstruction or active inflammation. Diverticula are seen of the colon, more significant involving the distal colon. The visualized large bowel is otherwise unremarkable. Reproductive: The uterus has been removed. Lymph nodes: No retroperitoneal or abdominal lymphadenopathy. Vascular: The aorta is not dilated. Peritoneum: Moderate amount of hemoperitoneum which appears similar to previous examination from the same day. Abdominal wall: Degenerative retrolisthesis of L3 on L4. Increased subcutaneous edema, most significant in the left lower quadrant anterior abdominal wall. IMPRESSION: Stable appearance of moderate amount of hemoperitoneum. Increasing patchy bibasilar atelectasis. Increasing subcutaneous edema of the intra-abdominal wall. Otherwise stable appearance of the abdomen and pelvis. Electronically authenticated by: LAYLA KAUR Date: 05/07/2023 19:50
[2023-05-07 13:22] LABS: Hematocrit 25.1 % (36.0-48.0); Hemoglobin 8.4 g/dL (12.0-16.0); Mean Corpuscular HGB Conc 33.5 g/dL (29.9-35.2); Mean Corpuscular Hemoglobin 27.2 pg (26.7-34.0); Mean Corpuscular Volume 81.2 fL (81.0-99.0); Platelet Count 202 10^3/uL (150-450); Red Blood Count 3.09 10^6/uL (4.20-5.40); Red Cell Distribution Width 19.8 % (11.0-15.0); White Blood Count 19.1 10^3/uL (4.0-11.0)
[2023-05-07 13:31] LABS: Eosinophils Absolute Manual 0.57 10^3/uL (0.00-0.70); Lymphocytes Absolute Manual 1.52 10^3/uL (1.20-3.80); Monocytes Absolute Manual 1.14 10^3/uL (0.30-0.80); Segmented Neut Absolute Manual 13.56 10^3/uL (1.4-6.5)
[2023-05-07 13:32] LABS: Anisocytosis 2+; Nucleated Red Blood Cells 4
--- NOTE | 2023-05-07 13:35 | SWNOTE1 ---
BCC accepted and starting precert. SW did notify doctor.
[2023-05-07 13:51] LABS: INR 1.66; Prothrombin Time 17.1 sec (9.0-11.6)
[2023-05-07 13:56] LABS: Partial Thromboplastin Time 45.3 sec (22.3-36.2)
[2023-05-07 14:24] LABS: Albumin Globulin Ratio 0.4
[2023-05-07 14:27] LABS: Alanine Aminotransferase 81 U/L (14-59); Albumin Level 1.3 g/dL (3.4-5.0); Alkaline Phosphatase 505 U/L (46-116); Amylase 55 U/L (25-115); Aspartate Amino Transferase 100 U/L (15-37); Bilirubin Total 6.1 mg/dL (0.2-1.0); Calcium 8.3 mg/dL (8.5-10.1); Carbon Dioxide 13.9 mmol/L (21.0-32.0); Chloride 105 mmol/L (98-107); Estimated GFR (African America 24 (>=60); Estimated GFR (Non-African Ame 19 (>=60); Glucose 136 mg/dL (74-106); Potassium 3.9 mmol/L (3.5-5.1); Sodium 139 mmol/L (136-145); Total Protein 4.3 g/dL (6.4-8.2)
[2023-05-07 14:37] LABS: Troponin I High Sensitivity 160.1 pg/mL (4.0-51.3)
--- NOTE | 2023-05-07 14:54 | XR_ITS ---
[address] [address] Patient Name: NORBERTO REICH MRN: [id number] date: 1945 Sex: F Assigned Patient Location: ICU Current Patient Location: ICU Accession/Order Number: [id number] Exam Date: 05/07/2023 15:21 Report Date: 05/07/2023 15:43 At the request of: KAITLIN VAN Procedure: XR chest 1V EXAMINATION: XR chest 1V HISTORY: line placed ; PICC line placement COMPARISON: XR chest 05/03/2023 FINDINGS: LUNGS: Underexpanded lungs with trace amount of bibasilar atelectasis. VASCULATURE: No increased pulmonary vasculature. PLEURA: Mild blunting of costophrenic angles bilaterally. CARDIAC: Cannot assess. MEDIASTINUM: No visible mass or adenopathy. BONES: No fracture or visible bone lesion. OTHER: PICC line enters from right side with tip near cavoatrial junction. IMPRESSION: 1. Right PICC line placement suspected to be in adequate position. 2. No pneumothorax. 3. [id number] bilateral pleural effusions; increased since prior study. Electronically authenticated by: ELLEN CAIN Date: 05/07/2023 15:43
--- NOTE | 2023-05-07 15:46 | P.GSCN_ITS ---
History of Present Illness Consult details Narrative: the patient is a 77-year-old female who I was notified this morning following a percutaneous liver biopsy per radiology and appeared to have some postprocedure bleeding from the liver based on CT scan. She also became hypotensive. He initially appeared to stabilize and a repeat CT of the abdomen and pelvis did not appear to show significant progression or increase of blood. She was admitted to the intensive care unit for observation as she again became somewhat hypotensive. She currently is receiving blood products and is on Levophed. Review of Systems ROS Status of ROS unobtainable due to medical condition [facility] Medical History (Updated 05/07/23 @ 15:51 by Heri Rubio MD) Surgical History (Updated 04/30/23 @ 08:05 by Margo Flores) Meds Home Medications and Allergies Home Medications Medication Instructions Recorded Confirmed Type aspirin 81 mg tablet,delayed 81 mg PO DAILY 04/30/23 04/30/23 History release (Adult Aspirin Regimen) calcium carbonate 500 mg calcium 500 mg PO DAILY 04/30/23 04/30/23 History (1,250 mg) tablet cefdinir PO DAILY UTI for 10 days 04/30/23 History coenzyme Q10 30 mg capsule 30 mg PO DAILY 04/30/23 04/30/23 History dexamethasone 4 mg tablet 4 mg PO DAILY 04/30/23 04/30/23 History taj powder PO BID 04/30/23 History megace PO DAILY 04/30/23 History multivitamin 1 tab PO DAILY 04/30/23 04/30/23 History pantoprazole 40 mg tablet,delayed 40 mg PO DAILY 04/30/23 04/30/23 History release potassium chloride 10 mEq 10 meq PO BID 04/30/23 04/30/23 History tablet,extended release (K-Tab) sucralfate 1 g PO ACHS 04/30/23 04/30/23 History Allergies Allergy/AdvReac Type Severity Reaction Status Date / Time No Known Drug Allergies Allergy Verified 04/30/23 08:02 Exam Narrative Exam Narrative: patient quite lethargic, does not answer questions, abdomen is soft and nondistended without appreciable tenderness Constitutional Vital Signs - 24 hr 05/06/23 15:47 05/06/23 15:59 05/06/23 16:59 Temperature 98.4 F 98.3 F Pulse Rate 108 H 104 H Respiratory Rate 24 24 Blood Pressure 92/61 88/58 L 96/64 Blood Pressure [Left Arm] Blood Pressure [Right Arm] Pulse Oximetry 94 L 97 Oxygen Delivery Method Room Air Room Air Oxygen Delivery Flow Rate 05/06/23 18:10 05/06/23 18:31 05/06/23 19:18 Temperature 98.3 F 98.7 F 98.4 F Pulse Rate 109 H 103 H 102 H Respiratory Rate 24 24 Blood Pressure 109/70 107/67 102/65 Blood Pressure [Left Arm] Blood Pressure [Right Arm] Pulse Oximetry 979 H 95 20 L Oxygen Delivery Method Room Air Room Air Room Air Oxygen Delivery Flow Rate 05/06/23 20:30 05/06/23 22:16 05/06/23 23:30 Temperature 97.7 F 97.8 F Pulse Rate 98 H 92 H Respiratory Rate 20 20 Blood Pressure 90/51 L 92/50 L Blood Pressure [Left Arm] Blood Pressure [Right Arm] Pulse Oximetry 90 L Oxygen Delivery Method Room Air Room Air Room Air Oxygen Delivery Flow Rate 96 96 05/07/23 04:31 05/07/23 12:45 Temperature 98 F 96.0 F L Pulse Rate 100 H 80 Respiratory Rate 20 20 Blood Pressure Blood Pressure [Left Arm] 78/0 L Blood Pressure [Right Arm] 101/65 Pulse Oximetry 95 97 Oxygen Delivery Method Room Air Room Air Oxygen Delivery Flow Rate Results Labs Labs: Abnormal lab results 05/06/23 05/07/23 05/07/23 Range/Units 09:35 05:11 08:06 WBC 16.0 H (4.0-11.0) 10^3/uL RBC 3.42 L (4.20-5.40) 10^6/uL Hgb 9.5 L (12.0-16.0) g/dL Hct 28.4 L (36.0-48.0) % RDW 19.2 H (11.0-15.0) % Neut % (Auto) 84.0 H (43.0-75.0) % Lymph % (Auto) 6.4 L (20.5-60.0) % Eos % (Auto) 0.2 L (0.9-7.0) % Neut # (Auto) 13.4 H (1.4-6.5) 10^3/uL Lymph # (Auto) 1.0 L (1.2-3.8) 10^3/uL Abs Immat Gran (auto) 0.91 H (0.00-0.03) 10^3/uL Lymphocytes % (Manual) (20.5-60.0) % Basophils % (Manual) (0.2-2.0) % Imm/Tot Granulo (auto) 5.7 H (0.0-0.5) % Neutrophils # (Manual) (1.4-6.5) 10^3/uL Monocytes # (Manual) (0.30-0.80) 10^3/uL PT (9.0-11.6) sec APTT (22.3-36.2) sec Carbon Dioxide 16.4 L (21.0-32.0) mmol/L BUN 106.0 H* (7.0-18.0) mg/dL Creatinine 2.36 H (0.55-1.02) mg/dL Est GFR ( Amer) 24 L (>=60) Est GFR (Non-Af Amer) 20 L (>=60) Glucose 155 H (74-106) mg/dL Calcium (8.5-10.1) mg/dL Total Bilirubin 5.6 H (0.2-1.0) mg/dL AST 119 H (15-37) U/L ALT 88 H (14-59) U/L Alkaline Phosphatase 585 H (46-116) U/L Ammonia 36 H (11-32) umol/L Troponin I High Sens (4.0-51.3) pg/mL NT-Pro-B Natriuret Pep 34005.0 H* (<=1800.0) pg/mL Total Protein 4.8 L (6.4-8.2) g/dL Albumin 1.4 L (3.4-5.0) g/dL Crossmatch See Detail 05/07/23 Range/Units 13:15 WBC 19.1 H (4.0-11.0) 10^3/uL RBC 3.09 L (4.20-5.40) 10^6/uL Hgb 8.4 L (12.0-16.0) g/dL Hct 25.1 L (36.0-48.0) % RDW 19.8 H (11.0-15.0) % Neut % (Auto) (43.0-75.0) % Lymph % (Auto) (20.5-60.0) % Eos % (Auto) (0.9-7.0) % Neut # (Auto) (1.4-6.5) 10^3/uL Lymph # (Auto) (1.2-3.8) 10^3/uL Abs Immat Gran (auto) (0.00-0.03) 10^3/uL Lymphocytes % (Manual) 8.0 L (20.5-60.0) % Basophils % (Manual) 0.0 L (0.2-2.0) % Imm/Tot Granulo (auto) (0.0-0.5) % Neutrophils # (Manual) 13.56 H (1.4-6.5) 10^3/uL Monocytes # (Manual) 1.14 H (0.30-0.80) 10^3/uL PT 17.1 H (9.0-11.6) sec APTT 45.3 H* (22.3-36.2) sec Carbon Dioxide 13.9 L (21.0-32.0) mmol/L BUN 107.0 H* (7.0-18.0) mg/dL Creatinine 2.43 H (0.55-1.02) mg/dL Est GFR ( Amer) 24 L (>=60) Est GFR (Non-Af Amer) 19 L (>=60) Glucose 136 H (74-106) mg/dL Calcium 8.3 L (8.5-10.1) mg/dL Total Bilirubin 6.1 H (0.2-1.0) mg/dL AST 100 H (15-37) U/L ALT 81 H (14-59) U/L Alkaline Phosphatase 505 H (46-116) U/L Ammonia (11-32) umol/L Troponin I High Sens 160.1 H* (4.0-51.3) pg/mL NT-Pro-B Natriuret Pep (<=1800.0) pg/mL Total Protein 4.3 L (6.4-8.2) g/dL Albumin 1.3 L (3.4-5.0) g/dL Crossmatch Diabetes panel 05/07/23 05/07/23 Range/Units 05:11 13:15 Sodium 138 139 (136-145) mmol/L Potassium 3.7 3.9 (3.5-5.1) mmol/L Chloride 103 105 (98-107) mmol/L Carbon Dioxide 16.4 L 13.9 L (21.0-32.0) mmol/L BUN 106.0 H* 107.0 H* (7.0-18.0) mg/dL Creatinine 2.36 H 2.43 H (0.55-1.02) mg/dL Glucose 155 H 136 H (74-106) mg/dL Calcium 8.7 8.3 L (8.5-10.1) mg/dL AST 119 H 100 H (15-37) U/L ALT 88 H 81 H (14-59) U/L Alkaline Phosphatase 585 H 505 H (46-116) U/L Total Protein 4.8 L 4.3 L (6.4-8.2) g/dL Albumin 1.4 L 1.3 L (3.4-5.0) g/dL Calcium panel 05/07/23 05/07/23 Range/Units 05:11 13:15 Calcium 8.7 8.3 L (8.5-10.1) mg/dL Albumin 1.4 L 1.3 L (3.4-5.0) g/dL Pituitary panel 05/07/23 05/07/23 Range/Units 05:11 13:15 Sodium 138 139 (136-145) mmol/L Potassium 3.7 3.9 (3.5-5.1) mmol/L Chloride 103 105 (98-107) mmol/L Carbon Dioxide 16.4 L 13.9 L (21.0-32.0) mmol/L BUN 106.0 H* 107.0 H* (7.0-18.0) mg/dL Creatinine 2.36 H 2.43 H (0.55-1.02) mg/dL Glucose 155 H 136 H (74-106) mg/dL Calcium 8.7 8.3 L (8.5-10.1) mg/dL Adrenal panel 05/07/23 05/07/23 Range/Units 05:11 13:15 Sodium 138 139 (136-145) mmol/L Potassium 3.7 3.9 (3.5-5.1) mmol/L Chloride 103 105 (98-107) mmol/L Carbon Dioxide 16.4 L 13.9 L (21.0-32.0) mmol/L BUN 106.0 H* 107.0 H* (7.0-18.0) mg/dL Creatinine 2.36 H 2.43 H (0.55-1.02) mg/dL Glucose 155 H 136 H (74-106) mg/dL Calcium 8.7 8.3 L (8.5-10.1) mg/dL Total Bilirubin 5.6 H 6.1 H (0.2-1.0) mg/dL AST 119 H 100 H (15-37) U/L ALT 88 H 81 H (14-59) U/L Alkaline Phosphatase 585 H 505 H (46-116) U/L Total Protein 4.8 L 4.3 L (6.4-8.2) g/dL Albumin 1.4 L 1.3 L (3.4-5.0) g/dL All other labs normal. Assessment and Plan Assessment and Plan (1) UTI (urinary tract infection): (2) Liver fibrosis: (3) Anemia: (4) UGI bleed: (5) Liver hemorrhage: Assessment and Plan: At this time would agree with conservative supportive measures with the blood products and vasopressor support as needed. Patient would be a very poor surgical candidate and typically a biopsy site which initially bled should eventually cease bleeding. Recommendations will be made pending patient's clinical status. Plan Sinus tachycardia, hypotension, leukocytosis with a positive lactate possibly secondary to recurrence of acute UTI-start antibiotics. Check on urine culture. Significant abdominal pain. She has liver masses. We are trying to get this worked up has been difficult to get it completed. We will check CT scan today.I will call Dysphagia-Please NG tube.I believe we can give medications. Liver mass-biopsy on Sunday if improving. DNR-cc-A for her CODE STATUS. Medical treatment definitely going to last more than 2 midnightsContinue with IV antibiotics, hydration IV andNG tube in place.
--- NOTE | 2023-05-07 15:59 | P.CCPRC_ITS ---
Procedures Central Line Placement Right Femoral: Pre procedure diagnosis: Hypotension Post procedure diagnosis: Hypotension Written consent by: health care proxy Site marking: site marked Verification/time out: correct patient Name of person performing procedure: Vishnu Chirinos Anesthesia: lidocaine 1% Amount of anesthesia used (mL): 10 Central Line Prep: Chlorhexidine scrub and sterile drapes applied Ultrasound Used for Placement: Yes Central Line Lumen Inserted: triple Post Procedure: sutured in place, good blood return, all ports aspirated, flushed, capped and sterile dressing applied Post Procedure X-Ray: no pneumothorax seen Estimated blood loss (if any): other (specify) (10mL) Complications: other (Unable to successfully cannulate the right IJ or right subclavian d/t collapse with respiratory motion) Additional Comments: Informed consent was obtained after risks, benefits, and alternatives were discussed with the family as patient was unable to provide consent. Time out was initiated to confirm the correct patient, site, and procedure with all present voicing in the affirmative. The patient was placed in the supine position. Anatomical landmarks were identified, including the right sternocleidomastoid. Portable ultrasound was utilized during the procedure. ChloraPrep was used to cleanse the right jugular region. Sterile drapes were applied. Lidocaine 1% 3mL was injected via 20 gauge needle, first as a superficial skin wheal, and then using aspiration technique, advanced towards the ipsilateral nipple in a 45 degree angulation. Next, a 16 gauge needle was directed in a similar fashion towards the ipsilateral needle. Using aspiration technique, no free air was encountered during advancement of the needle. I was not able to cannulate the internal jugular vein. It collapsed with respiratory motion. Despite attempting to coordinate cannulation with respirations, I was not able to do so. The internal jugular approach was aborted and change to a right subclavian approach. ChloraPrep was used to cleanse the right anterior chest. Sterile drapes were applied. Lidocaine 1% 2mL was injected via 20 gauge needle, first as a superficial skin wheal, and then using aspiration technique, advanced horizontally to the undersurface of the clavicle subcutaneously at the periosteum. Next, a 16 gauge needle was directed towards the sternal notch. Using aspiration technique, no free air was encountered during advancement of the needle. As with the internal jugular, subclavian collapsed with respiratory motion. Decision was made to abort the subclavian approach and attempt femoral placement. ChloraPrep was used to cleanse the right groin. Sterile drapes were applied. Lidocaine 1% 5mL was injected via 20 gauge needle, first as a superficial skin wheal, and then using aspiration technique, advanced towards the femoral vein in a 45 degree angulation. Next, a 16 gauge needle was directed via ultrasound guidance towards the femoral vein. It was easily collapsible with only mild pressure applied. Even with ultrasound, it was difficult to cannulate the femoral vein. It was finally cannulated with return of dark red, sluggish, nonpulsatile venous blood. I attempted to advance the femoral guidewire; however, the wire was kinked from the kit (I had done nothing to the guidewire to account for the kinking), and was not able to be utilized. I was able to use the guidewire from the IJ/subclavian kit to advanced through the needle into the cannulated femoral vein. Once the guidewire was appropriately advanced, the needle was retracted and discarded. Hemostasis at the site was maintained with a 4x4 gauze. Next, a small incision was made to the anesthetized area with a #11 blade provided in the prepackaged triple lumen catheter kit. A venodilator was then advanced to its full extent over the guidewire, retracted ,and discarded, all while maintaining hemostasis with a 4x4 gauze. The triple lumen catheter was flushed with normal saline, with the first and second lumens clamped. The catheter was then advanced over the guidewire, once again monitoring telemetry for ectopy. The guidewire passed easily through the third lumen until it protruded through the distal port. Once the catheter was po sitioned appropriately, the guidewire was retracted completely and discarded. The first and second lumens were unclamped and venous blood return was noted through all three lumens. They were subsequently flushed with normal saline until clear and needle caps were secured via Luer Lock on the distal ports. Next, the catheter's securing device was anchored subcutaneously to the right groin utilizing two simple sutures. Hemostasis was assured. Sterile dressing was applied.
[2023-05-07] MEDS: DIPHENHYDRAMINE HCL 50 MG/ML (1ML) VIAL 12.5 MG IV (16:08)
[2023-05-07] MEDS: HYOSCYAMINE SULFATE 0.125 MG TAB.SUBL 0.25 MG SL (16:09)
[2023-05-07] MEDS: PANTOPRAZOLE SODIUM 40 MG VIAL IV ×2 (16:09→21:01)
[2023-05-07] MEDS: PIPERACILLIN SODIUM/TAZOBACTAM 3.375 GM in 0.9 % SODIUM CHLORIDE 50 ML IV ×2 (16:10→16:17)
[2023-05-07] MEDS: ALBUMIN HUMAN 50 GM/200 ML PREMIX IV ×2 (16:12→21:52)
[2023-05-07] MEDS: PHYTONADIONE (VIT K1) 5 MG in 0.9 % SODIUM CHLORIDE 50 ML 202 MG IV (16:12)
[2023-05-07] MEDS: LACTATED RINGER'S SOLUTION 1,000 ML 60 ML IV (16:13)
[2023-05-07] MEDS: NOREPINEPHRINE BITARTRATE 4 MG in DEXTROSE 5 % IN WATER 250 ML 30.48 MG IV ×2 (16:13→21:00)
[2023-05-07 17:52] LABS: Basophils Percent Auto 0.1 % (0.2-2.0); Eosinophils Percent Auto 0.1 % (0.9-7.0); Immature Granulocytes Abs Auto 1.21 10^3/uL (0.00-0.03); Immature Granulocytes Pct Auto 7.3 % (0.0-0.5); Lymphocytes Absolute Auto 0.8 10^3/uL (1.2-3.8); Mean Corpuscular Hemoglobin 27.8 pg (26.7-34.0); Mean Corpuscular Volume 81.7 fL (81.0-99.0); Mean Platelet Volume 10.7 fL (9.5-13.5); Monocytes Absolute Auto 0.6 10^3/uL (0.3-0.8); Monocytes Percent Auto 3.6 % (1.7-12.0); Neutrophils Absolute Auto 13.9 10^3/uL (1.4-6.5); Neutrophils Percent Auto 83.9 % (43.0-75.0); Platelet Count 152 10^3/uL (150-450); Red Blood Count 2.41 10^6/uL (4.20-5.40); White Blood Count 16.6 10^3/uL (4.0-11.0)
[2023-05-07 18:02] LABS: Hematocrit 19.7 % (36.0-48.0); Hemoglobin 6.7 g/dL (12.0-16.0)
[2023-05-07 18:03] LABS: INR 1.58; Prothrombin Time 16.3 sec (9.0-11.6)
[2023-05-07 18:09] LABS: Troponin I High Sensitivity 187.8 pg/mL (4.0-51.3)
[2023-05-07] MEDS: 0.9 % SODIUM CHLORIDE 250 ML 100 ML IV (18:58)
[2023-05-07] MEDS: 0.9 % SODIUM CHLORIDE 250 ML 15 ML IV (19:53)
[2023-05-08] VITALS (108 sets, daily range): BP systolic 66–137; BP diastolic 29–90; PULSE 31–120; RESP 0–41; TEMP 35.5–36.1; O2SAT 12–99
[2023-05-08] MEDS: PIPERACILLIN SODIUM/TAZOBACTAM 3.375 GM in 0.9 % SODIUM CHLORIDE 50 ML IV ×3 (00:17→17:06)
[2023-05-08] MEDS: 0.9 % SODIUM CHLORIDE 250 ML 15 ML IV (03:03)
--- NOTE | 2023-05-08 03:04 | PC.NURSE ---
Unable to Scan FFP out to [employer] down in Lab, Lab not crossing over in new system [employer] to show to scan FFP into system. Lab issued FFP with paper/old system. [employer] aware. [employer] was witness to infusion of FFP. Vitals documented on paper chart
[2023-05-08] MEDS: LACTATED RINGER'S SOLUTION 1,000 ML 60 ML IV (04:04)
--- NOTE | 2023-05-08 07:35 | P.DS_ITS ---
DS: Providers Provider Date of admission: 05/04/23 09:43 Primary care physician: Amilcar Hutchins MD Consults: 05/03/23 16:33 Physical Therapy Eval and Treat Routine 05/04/23 Occupational Therapy Eval and Treat Routine 05/04/23 09:44 Occupational Therapy Eval and Treat Routine Physical Therapy Eval and Treat Routine 05/04/23 10:31 Speech Therapy Eval and Treat Routine 05/07/23 10:20 Speech Therapy Eval and Treat Routine 05/07/23 13:37 Consult to General Surgeon Routine Consulting Provider: Heri Rubio DS: Diagnosis Discharge Diagnosis (1) UTI (urinary tract infection): (2) Liver fibrosis: (3) Anemia: (4) UGI bleed: (5) Liver hemorrhage: Plan Sinus tachycardia, hypotension, leukocytosis with a positive lactate possibly secondary to recurrence of acute UTI Significant abdominal pain.? Significant peripheral edema mostly dependent Dysphagia- elevated liver function test with Liver mass- severe protein calorie malnutrition severe anemia Chronic kidney disease stage II- -Labs pending DS: Summary Hospital Course Hospital Course: Patient was admitted after transfer from outside facility due to increasing weakness, peripheral edema, abdominal pain. Found to have acute UTI treated with IV antibiotics, patient's condition continued to deteriorate, she was having a plan in place to work-up for this liver mass. She had biopsy completed but over the course of the next 24 hours patient's condition continued to deteriorate discussion with family it was elected to make patient DNR-cc, and patient . Time Spent with Patient Time attestation: Total time spent providing and/or coordinating discharge services: Exam Constitutional Vital Signs, click to edit/add: Last Vital Signs Temp 95.9 F L 06/13/23 19:20 Pulse 35 L 05/08/23 19:20 Resp 0 L 05/08/23 19:26 BP 70/40 L 05/08/23 19:01 Pulse Ox 69 L 05/08/23 19:20 O2 Del Method Nonrebreather 05/08/23 19:20 O2 Flow Rate 4 05/08/23 15:50 Discharge Plan Discharge Disposition: Discharge Date/Time: 05/08/23 21:50 Date/Time: 05/08/23 19:26
--- NOTE | 2023-05-08 08:16 | P.PN_ITS ---
Progress Note: Subjective Subjective Interval history: So significant weakness but does become more today than yesterday. Exam Constitutional Vital Signs - 24 hr 05/07/23 12:45 05/07/23 15:10 05/07/23 14:00 Temperature 96.0 F L 97.2 F L Pulse Rate 80 96 H Respiratory Rate 20 18 Blood Pressure Blood Pressure [Left Arm] 78/0 L 106/56 L Pulse Oximetry 97 100 98 Oxygen Delivery Method Room Air Room Air Room Air 05/07/23 16:22 05/07/23 17:09 05/07/23 19:42 Temperature 97.2 F L 97.8 F Pulse Rate 98 H 85 Respiratory Rate 18 16 Blood Pressure 98/65 91/56 L Blood Pressure [Left Arm] Pulse Oximetry 99 96 95 Oxygen Delivery Method Room Air Room Air 05/07/23 19:56 05/07/23 20:17 05/07/23 22:22 Temperature 96.9 F L 96.8 F L 96.7 F L Pulse Rate 93 H 89 88 Respiratory Rate 18 18 20 Blood Pressure 111/52 L 114/71 Blood Pressure [Left Arm] 107/50 L Pulse Oximetry 95 97 Oxygen Delivery Method Room Air Room Air Room Air 05/07/23 16:35 05/07/23 16:40 05/07/23 16:46 Temperature Pulse Rate 86 86 88 Respiratory Rate Blood Pressure 95/48 L 97/45 L 97/45 L Blood Pressure [Left Arm] Pulse Oximetry Oxygen Delivery Method 05/07/23 16:50 05/07/23 16:55 05/07/23 17:00 Temperature Pulse Rate 86 84 87 Respiratory Rate Blood Pressure 93/48 L 97/52 L 92/54 L Blood Pressure [Left Arm] Pulse Oximetry 94 L Oxygen Delivery Method 05/07/23 17:05 05/07/23 17:10 05/07/23 17:15 Temperature Pulse Rate 87 84 85 Respiratory Rate Blood Pressure 91/56 L 86/62 L 99/51 L Blood Pressure [Left Arm] Pulse Oximetry Oxygen Delivery Method 05/07/23 17:20 05/07/23 17:25 05/07/23 17:30 Temperature Pulse Rate 89 86 87 Respiratory Rate Blood Pressure 95/46 L 93/58 L 93/66 Blood Pressure [Left Arm] Pulse Oximetry Oxygen Delivery Method 05/07/23 17:35 05/07/23 17:40 05/07/23 17:45 Temperature Pulse Rate 85 85 86 Respiratory Rate Blood Pressure 105/52 L 98/54 L 101/59 L Blood Pressure [Left Arm] Pulse Oximetry Oxygen Delivery Method 05/07/23 17:50 05/07/23 17:55 05/07/23 18:00 Temperature Pulse Rate 87 85 88 Respiratory Rate Blood Pressure 97/60 90/58 L 96/58 L Blood Pressure [Left Arm] Pulse Oximetry Oxygen Delivery Method 05/07/23 18:05 05/07/23 18:10 05/07/23 18:15 Temperature Pulse Rate 83 83 84 Respiratory Rate Blood Pressure 104/57 L 95/53 L 96/58 L Blood Pressure [Left Arm] Pulse Oximetry Oxygen Delivery Method 05/07/23 18:20 05/07/23 18:25 05/07/23 18:44 Temperature Pulse Rate 90 90 93 H Respiratory Rate Blood Pressure 101/54 L 106/51 L Blood Pressure [Left Arm] Pulse Oximetry 95 97 Oxygen Delivery Method 05/07/23 18:48 05/07/23 18:48 05/07/23 18:48 Temperature Pulse Rate 92 H 94 H 92 H Respiratory Rate Blood Pressure 111/58 L 111/58 L Blood Pressure [Left Arm] Pulse Oximetry Oxygen Delivery Method 05/07/23 18:50 05/07/23 18:55 05/07/23 19:00 Temperature Pulse Rate 93 H 92 H 92 H Respiratory Rate Blood Pressure 111/57 L 111/55 L 113/51 L Blood Pressure [Left Arm] Pulse Oximetry Oxygen Delivery Method 05/07/23 19:05 05/07/23 19:10 05/07/23 19:15 Temperature Pulse Rate 91 H 91 H 90 Respiratory Rate Blood Pressure 113/51 L 113/56 L 110/55 L Blood Pressure [Left Arm] Pulse Oximetry Oxygen Delivery Method 05/07/23 19:20 05/07/23 19:25 05/07/23 19:30 Temperature Pulse Rate 91 H 95 H 93 H Respiratory Rate Blood Pressure 113/55 L 111/55 L 112/56 L Blood Pressure [Left Arm] Pulse Oximetry 95 95 95 Oxygen Delivery Method 05/07/23 19:35 05/07/23 19:40 05/07/23 19:45 Temperature Pulse Rate 91 H 93 H 93 H Respiratory Rate Blood Pressure 115/55 L 110/52 L 111/55 L Blood Pressure [Left Arm] Pulse Oximetry 95 97 97 Oxygen Delivery Method 05/07/23 19:50 05/07/23 19:55 05/07/23 20:00 Temperature Pulse Rate 93 H 94 H 93 H Respiratory Rate Blood Pressure 112/57 L 111/52 L 104/53 L Blood Pressure [Left Arm] Pulse Oximetry 97 97 96 Oxygen Delivery Method 05/07/23 20:05 05/07/23 20:10 05/07/23 20:15 Temperature Pulse Rate 88 89 90 Respiratory Rate Blood Pressure 100/52 L 103/48 L 107/50 L Blood Pressure [Left Arm] Pulse Oximetry 96 95 Oxygen Delivery Method 05/07/23 20:20 05/07/23 20:25 05/07/23 20:30 Temperature Pulse Rate 89 88 88 Respiratory Rate Blood Pressure 106/51 L 108/50 L 105/49 L Blood Pressure [Left Arm] Pulse Oximetry 96 96 96 Oxygen Delivery Method 05/07/23 20:35 05/07/23 20:40 05/08/23 06:23 Temperature 96.9 F L Pulse Rate 87 83 92 H Respiratory Rate 18 Blood Pressure 105/47 L 106/51 L Blood Pressure [Left Arm] 101/55 L Pulse Oximetry 97 96 94 L Oxygen Delivery Method Room Air 05/07/23 20:40 05/07/23 20:45 05/07/23 20:50 Temperature Pulse Rate 86 86 85 Respiratory Rate Blood Pressure 106/51 L 112/49 L 109/50 L Blood Pressure [Left Arm] Pulse Oximetry 96 97 96 Oxygen Delivery Method 05/07/23 20:55 05/07/23 21:00 05/07/23 21:05 Temperature Pulse Rate 85 88 86 Respiratory Rate Blood Pressure 109/50 L 110/49 L 115/46 L Blood Pressure [Left Arm] Pulse Oximetry 97 97 97 Oxygen Delivery Method 05/07/23 21:10 05/07/23 21:15 05/07/23 21:20 Temperature Pulse Rate 84 86 87 Respiratory Rate Blood Pressure 109/48 L 110/47 L 108/52 L Blood Pressure [Left Arm] Pulse Oximetry 97 97 96 Oxygen Delivery Method 05/07/23 21:25 05/07/23 21:30 05/07/23 21:35 Temperature Pulse Rate 86 84 88 Respiratory Rate Blood Pressure 107/53 L 108/51 L 106/52 L Blood Pressure [Left Arm] Pulse Oximetry 97 97 97 Oxygen Delivery Method 05/07/23 21:40 05/07/23 21:50 05/07/23 22:00 Temperature Pulse Rate 87 84 89 Respiratory Rate Blood Pressure 107/59 L 107/52 L 108/53 L Blood Pressure [Left Arm] Pulse Oximetry 97 98 98 Oxygen Delivery Method 05/07/23 22:10 05/07/23 22:20 05/07/23 22:30 Temperature Pulse Rate 88 88 89 Respiratory Rate Blood Pressure 112/52 L 114/47 L 112/49 L Blood Pressure [Left Arm] Pulse Oximetry 97 97 97 Oxygen Delivery Method 05/07/23 22:40 05/07/23 22:50 05/07/23 23:00 Temperature Pulse Rate 87 71 88 Respiratory Rate Blood Pressure 111/52 L 102/51 L 108/48 L Blood Pressure [Left Arm] Pulse Oximetry 97 96 96 Oxygen Delivery Method 05/07/23 23:10 05/07/23 23:20 05/07/23 23:30 Temperature Pulse Rate 89 94 H 89 Respiratory Rate 17 17 Blood Pressure 106/50 L 111/51 L 101/49 L Blood Pressure [Left Arm] Pulse Oximetry 97 96 95 Oxygen Delivery Method 05/07/23 23:40 05/07/23 23:50 05/07/23 23:50 Temperature Pulse Rate 91 H 90 92 H Respiratory Rate 16 16 18 Blood Pressure 102/52 L 106/49 L 106/49 L Blood Pressure [Left Arm] Pulse Oximetry 95 95 95 Oxygen Delivery Method 05/08/23 00:00 05/08/23 00:10 05/08/23 00:20 Temperature Pulse Rate 88 89 89 Respiratory Rate 17 18 17 Blood Pressure 107/52 L 104/50 L 104/52 L Blood Pressure [Left Arm] Pulse Oximetry 94 L 95 95 Oxygen Delivery Method 05/08/23 00:30 05/08/23 00:40 05/08/23 00:50 Temperature Pulse Rate 88 88 90 Respiratory Rate 17 16 16 Blood Pressure 104/54 L 102/55 L 100/53 L Blood Pressure [Left Arm] Pulse Oximetry 95 95 95 Oxygen Delivery Method 05/08/23 01:00 05/08/23 01:00 05/08/23 01:10 Temperature Pulse Rate 82 87 90 Respiratory Rate 16 17 16 Blood Pressure 101/50 L 101/50 L 99/49 L Blood Pressure [Left Arm] Pulse Oximetry 94 L 95 95 Oxygen Delivery Method 05/08/23 01:20 05/08/23 01:30 05/08/23 01:40 Temperature Pulse Rate 90 91 H 93 H Respiratory Rate 17 16 16 Blood Pressure 103/54 L 106/57 L 106/53 L Blood Pressure [Left Arm] Pulse Oximetry 95 95 95 Oxygen Delivery Method 05/08/23 01:50 05/08/23 02:00 05/08/23 02:10 Temperature Pulse Rate 93 H 92 H 94 H Respiratory Rate 16 15 17 Blood Pressure 106/53 L 105/52 L 106/51 L Blood Pressure [Left Arm] Pulse Oximetry 95 95 95 Oxygen Delivery Method 05/08/23 02:20 05/08/23 02:30 05/08/23 02:40 Temperature Pulse Rate 92 H 94 H 94 H Respiratory Rate 15 15 15 Blood Pressure 105/54 L 107/53 L 107/52 L Blood Pressure [Left Arm] Pulse Oximetry 95 95 95 Oxygen Delivery Method 05/08/23 02:50 05/08/23 03:00 05/08/23 04:05 Temperature Pulse Rate 94 H 94 H Respiratory Rate 16 16 Blood Pressure 104/54 L 108/54 L Blood Pressure [Left Arm] Pulse Oximetry 95 95 95 Oxygen Delivery Method Room Air 05/08/23 05:10 Temperature 96.9 F L Pulse Rate 94 H Respiratory Rate 16 Blood Pressure 107/56 L Blood Pressure [Left Arm] Pulse Oximetry 94 L Oxygen Delivery Method Room Air Common normals: apparent distress Exam limitations: altered mental status (Very fatigued) [facility] Common normals: oral mucous membranes not moist (Better than previous day) Chest Common normals: inspection of chest normal Respiratory Common normals: abnormal respiratory effort (Although appears fairly comfortable with her breathing she does not appear ) Effort & inspection: able to speak in complete sentences Auscultation: rales Cardio Rate: regular rate Heart sounds: murmur GI Inspection: normal to inspection Palpation: tender Progress Note: Objective Labs Labs: Short CBC 05/07/23 05/07/23 Range/Units 13:15 17:22 WBC 19.1 H 16.6 H (4.0-11.0) 10^3/uL Hgb 8.4 L 6.7 L* (12.0-16.0) g/dL Hct 25.1 L 19.7 L* (36.0-48.0) % Plt Count 202 152 (150-450) 10^3/uL BMP 05/07/23 13:15 Sodium 139 Potassium 3.9 Chloride 105 Carbon Dioxide 13.9 L BUN 107.0 H* Creatinine 2.43 H Glucose 136 H Calcium 8.3 L Liver Function 05/07/23 Range/Units 13:15 Total Bilirubin 6.1 H (0.2-1.0) mg/dL AST 100 H (15-37) U/L ALT 81 H (14-59) U/L Alkaline Phosphatase 505 H (46-116) U/L Albumin 1.3 L (3.4-5.0) g/dL Progress Note: A&P Assessment and Plan (1) UTI (urinary tract infection): (2) Liver fibrosis: (3) Anemia: (4) UGI bleed: (5) Liver hemorrhage: Plan Sinus tachycardia, hypotension, leukocytosis with a positive lactate possibly secondary to recurrence of acute UTI- Her blood cell count slightly better with last CBC, CBC for this morning is still pending Significant abdominal pain.? -Deteriorated yesterday after biopsy, significant bleeding with biopsy of liver, she has been given a total of 5 units of PRBCs and 3 units of FFP, labs from this morning are pending. Significant peripheral edema mostly dependent, likely related to combination of fluids given as well as her severe protein calorie malnutrition-so far given 2 doses of albumin we will repeat another one later today. Labs are pending.Consideration for IV Lasix depending on labs Dysphagia-Patient not tolerating NG tube feeds. Speech therapy to work with patient today-Unable to work with her yesterday secondary to the above elevated liver function test with Liver mass-Awaiting path report severe protein calorie malnutrition- Given albumin IV to try to pull in some fluid severe anemia-possible acute upper GI bleed with positive occult blood-Repeat blood count yesterday was pretty stable, but lower today. Transfuse 2 units elevated BNP likely a complication of her severe protein calorie malnutrition and her acute kidney injury- Repeat later today Chronic kidney disease stage II- -Labs pending DNR-cc-A for her CODE STATUS.-Depending on labs from this morning will discuss with family, patient continues to deteriorate despite efforts to improve her, consideration for discussion with hospice despite unknown results on biopsy Medical treatment definitely going to last more than ?2 midnights Continue with IV antibiotics, hydration IV
--- NOTE | 2023-05-08 08:22 | XR_ITS ---
The [address] [address] Patient Name: NORBERTO REICH MRN: [id number] date: 1945 Sex: F Assigned Patient Location: ICU Current Patient Location: ICU Accession/Order Number: [id number] Exam Date: 05/08/2023 09:00 Report Date: 05/08/2023 09:25 At the request of: KAITLIN VAN Procedure: XR chest 1V EXAM: Portable chest REASON FOR EXAM: Dyspnea. TECHNIQUE: A portable frontal view of the chest was obtained. COMPARISON: 05/07/2023. FINDINGS: The lungs are very hypoinflated. Both lungs show a diffuse slight hazy appearance. The heart and mediastinum are grossly stable in appearance. The right-sided PICC line is stable in position. There is no mass or pathologic adenopathy. Osseous structures are normal. IMPRESSION: Very limited exam due to depth of inspiration. The appearance of lungs could indicate early pneumonia, early changes of CHF/fluid overload, or could be artifact due to degree of inspiration. If clinical concern remains, consider further evaluation with CT of the chest. Electronically authenticated by: RICH HOGAN Date: 05/08/2023 09:25
[2023-05-08] MEDS: PANTOPRAZOLE SODIUM 40 MG VIAL IV (08:44)
[2023-05-08 08:49] LABS: Hematocrit 32.9 % (36.0-48.0); Hemoglobin 11.3 g/dL (12.0-16.0); Mean Corpuscular HGB Conc 34.3 g/dL (29.9-35.2); Mean Corpuscular Hemoglobin 28.5 pg (26.7-34.0); Mean Corpuscular Volume 82.9 fL (81.0-99.0); Mean Platelet Volume 11.6 fL (9.5-13.5); Platelet Count 103 10^3/uL (150-450); Red Blood Count 3.97 10^6/uL (4.20-5.40); Red Cell Distribution Width 17.5 % (11.0-15.0); White Blood Count 16.8 10^3/uL (4.0-11.0)
[2023-05-08] MEDS: DEXAMETHASONE SODIUM PHOSPHATE 4 MG/ML VIAL IV (09:00)
--- NOTE | 2023-05-08 09:05 | REH.PTDLY ---
Physical Therapy Daily Note PT Daily Note/Assess Start: 05/05/23 09:17 Freq: Status: Active Protocol: Document 05/08/23 09:04 LAURA (Rec: 05/08/23 09:05 LAURA [id number]) Visit Not Completed Visit Not Completed Due to: Nursing request to hold Other Reason Visit Not Completed Pt continues to have decline in health, 4 units of blood during the night. Probable hospice consult per ICU nurse. Physical Therapy Daily Note/Assessment Time In 08:18 Time Out 08:19
[2023-05-08 09:19] LABS: Ammonia 45 umol/L (11-32); Troponin I High Sensitivity 217.3 pg/mL (4.0-51.3)
[2023-05-08 09:22] LABS: Segmented Neut Absolute Manual 13.44 10^3/uL (1.4-6.5)
[2023-05-08 09:23] LABS: Band Neutrophils Absolute 1.3 10^3/uL (0.0-0.3); Lymphocytes Absolute Manual 1.51 10^3/uL (1.20-3.80)
[2023-05-08 09:24] LABS: Metamyelocytes Absolute Manual 0
[2023-05-08 09:27] LABS: Nucleated Red Blood Cells 2
[2023-05-08 09:28] LABS: Poikilocytosis 1+; Target Cells 1+; Tear Drop Cells 1+
[2023-05-08 09:55] LABS: Alanine Aminotransferase 62 U/L (14-59); Albumin Globulin Ratio 1.1; Albumin Level 2.9 g/dL (3.4-5.0); Alkaline Phosphatase 367 U/L (46-116); Amylase 49 U/L (25-115); Anion Gap 20.5; Aspartate Amino Transferase 101 U/L (15-37); BUN Creatinine Ratio 47.3; Bilirubin Total 7.4 mg/dL (0.2-1.0); Calcium 8.4 mg/dL (8.5-10.1); Chloride 106 mmol/L (98-107); Estimated GFR (African America 29 (>=60); Estimated GFR (Non-African Ame 24 (>=60); Globulin 2.7 g/dL; Glucose 136 mg/dL (74-106); Magnesium 2.1 mg/dL (1.8-2.4); Potassium 3.5 mmol/L (3.5-5.1); Sodium 142 mmol/L (136-145); Total Protein 5.6 g/dL (6.4-8.2)
[2023-05-08] MEDS: ALBUMIN HUMAN 50 GM/200 ML PREMIX IV (10:56)
[2023-05-08] MEDS: FUROSEMIDE 40 MG/4 ML VIAL IVP (10:57)
--- NOTE | 2023-05-08 12:17 | CA_ITS ---
Patient: NORBERTO REICH V. Exam Date: 05/08/2023 : 1945 Gender:F Ordering : DR Amilcar Hutchins . Admission #: [id number] Family : DR. ROSALBA MONTOYA . Order #: [id number] CLICK HERE TO VIEW EXAM ECHOCARDIOGRAM REPORT PROCEDURE: CA ECHO LIMITED INDICATIONS: [place] COMPARISON: None. DESCRIPTION: Limited ECHOCARDIOGRAM Real-time transthoracic echocardiography with 2D and M-mode performed. QUALITY: Technical quality was good. LEFT VENTRICLE: Normal chamber size. Thickened septal wall. Calculated left ventricular ejection fraction is 77%. Hyperdynamic left ventricular systolic function. LV EF: DIASTOLIC: ATRIAL SEPTUM: LEFT ATRIUM: RIGHT ATRIUM: RIGHT VENTRICLE: Right ventricle is mildly dilated. Normal right ventricular systolic function. TRICUSPID VALVE: Normal mobility and thickness. MITRAL VALVE: Normal mobility and thickness. Mild mitral annular calcification. AORTIC VALVE: Normal trileaflet appearance. AORTIC ROOT: Normal diameter and appearance. PULMONIC VALVE: Normal thickness and mobility. PERICARDIUM: No evidence of pericardial effusion. IVC: Not well visualized. PLEURA: CONCLUSION: 1. Left ventricular systolic function is hyperdynamic. Estimated LVEF is 75 to 80%. 2. Normal right ventricular systolic function. The right ventricle is mildly dilated. 3. No pericardial effusion. 4. Limited study performed with no Doppler interrogation as requested. Adult Echocardiography Procedure Report Left Ventricle LVEDD (3.7 - 5.6 cm): 3.51 cm LVESD (2.2 - 4.0 cm): 2.24 cm LVIVS thickness (0.6 - 1.2 cm): 1.61 cm LVPW thickness (0.5 - 1.0 cm): 0.98 cm LVOT Diameter 1.71 cm Left Ventricular Ejection Fraction: 77.48 % Left Atrium Left Atrium Systolic Dimension: 3.57 cm Mitral Valve Right Ventricle Aorta AO Root Diam: 2.36 cm Aortic Valve Tricuspid Valve Pulmonic Valve Right Atrium Dictated by: Vinnie Yu M.D. on 05/08/2023 at 17:48 Approved by: Vinnie Yu M.D. on 05/08/2023 at 17:50
[2023-05-08] MEDS: NOREPINEPHRINE BITARTRATE 4 MG in DEXTROSE 5 % IN WATER 250 ML 30.48 MG IV (12:28)
--- NOTE | 2023-05-08 12:28 | PM.GSPN ---
Progress Note: A&P Assessment and Plan (1) UTI (urinary tract infection): (2) Liver fibrosis: (3) Anemia: (4) UGI bleed: (5) Liver hemorrhage: Assessment and Plan: . Really nothing new to add from a surgical standpoint. Per Dr. Hutchins's note would agree with discussion of level of care/hospice with family. Subjective Subjective Interval history: patient remains critical and continues to do poorly, now again requiring vasopressors Exam Narrative Exam Narrative: minimally responsive Abdomen soft Constitutional Vital Signs - 24 hr 05/07/23 12:45 05/07/23 15:10 05/07/23 14:00 Temperature 96.0 F L 97.2 F L Pulse Rate 80 96 H Respiratory Rate 20 18 Blood Pressure Blood Pressure [Left Arm] 78/0 L 106/56 L Pulse Oximetry 97 100 98 Oxygen Delivery Method Room Air Room Air Room Air 05/07/23 16:22 05/07/23 17:09 05/07/23 19:42 Temperature 97.2 F L 97.8 F Pulse Rate 98 H 85 Respiratory Rate 18 16 Blood Pressure 98/65 91/56 L Blood Pressure [Left Arm] Pulse Oximetry 99 96 95 Oxygen Delivery Method Room Air Room Air 05/07/23 19:56 05/07/23 20:17 05/07/23 22:22 Temperature 96.9 F L 96.8 F L 96.7 F L Pulse Rate 93 H 89 88 Respiratory Rate 18 18 20 Blood Pressure 111/52 L 114/71 Blood Pressure [Left Arm] 107/50 L Pulse Oximetry 95 97 Oxygen Delivery Method Room Air Room Air Room Air 05/07/23 16:35 05/07/23 16:40 05/07/23 16:46 Temperature Pulse Rate 86 86 88 Respiratory Rate Blood Pressure 95/48 L 97/45 L 97/45 L Blood Pressure [Left Arm] Pulse Oximetry Oxygen Delivery Method 05/07/23 16:50 05/07/23 16:55 05/07/23 17:00 Temperature Pulse Rate 86 84 87 Respiratory Rate Blood Pressure 93/48 L 97/52 L 92/54 L Blood Pressure [Left Arm] Pulse Oximetry 94 L Oxygen Delivery Method 05/07/23 17:05 05/07/23 17:10 05/07/23 17:15 Temperature Pulse Rate 87 84 85 Respiratory Rate Blood Pressure 91/56 L 86/62 L 99/51 L Blood Pressure [Left Arm] Pulse Oximetry Oxygen Delivery Method 05/07/23 17:20 05/07/23 17:25 05/07/23 17:30 Temperature Pulse Rate 89 86 87 Respiratory Rate Blood Pressure 95/46 L 93/58 L 93/66 Blood Pressure [Left Arm] Pulse Oximetry Oxygen Delivery Method 05/07/23 17:35 05/07/23 17:40 05/07/23 17:45 Temperature Pulse Rate 85 85 86 Respiratory Rate Blood Pressure 105/52 L 98/54 L 101/59 L Blood Pressure [Left Arm] Pulse Oximetry Oxygen Delivery Method 05/07/23 17:50 05/07/23 17:55 05/07/23 18:00 Temperature Pulse Rate 87 85 88 Respiratory Rate Blood Pressure 97/60 90/58 L 96/58 L Blood Pressure [Left Arm] Pulse Oximetry Oxygen Delivery Method 05/07/23 18:05 05/07/23 18:10 05/07/23 18:15 Temperature Pulse Rate 83 83 84 Respiratory Rate Blood Pressure 104/57 L 95/53 L 96/58 L Blood Pressure [Left Arm] Pulse Oximetry Oxygen Delivery Method 05/07/23 18:20 05/07/23 18:25 05/07/23 18:44 Temperature Pulse Rate 90 90 93 H Respiratory Rate Blood Pressure 101/54 L 106/51 L Blood Pressure [Left Arm] Pulse Oximetry 95 97 Oxygen Delivery Method 05/07/23 18:48 05/07/23 18:48 05/07/23 18:48 Temperature Pulse Rate 92 H 94 H 92 H Respiratory Rate Blood Pressure 111/58 L 111/58 L Blood Pressure [Left Arm] Pulse Oximetry Oxygen Delivery Method 05/07/23 18:50 05/07/23 18:55 05/07/23 19:00 Temperature Pulse Rate 93 H 92 H 92 H Respiratory Rate Blood Pressure 111/57 L 111/55 L 113/51 L Blood Pressure [Left Arm] Pulse Oximetry Oxygen Delivery Method 05/07/23 19:05 05/07/23 19:10 05/07/23 19:15 Temperature Pulse Rate 91 H 91 H 90 Respiratory Rate Blood Pressure 113/51 L 113/56 L 110/55 L Blood Pressure [Left Arm] Pulse Oximetry Oxygen Delivery Method 05/07/23 19:20 05/07/23 19:25 05/07/23 19:30 Temperature Pulse Rate 91 H 95 H 93 H Respiratory Rate Blood Pressure 113/55 L 111/55 L 112/56 L Blood Pressure [Left Arm] Pulse Oximetry 95 95 95 Oxygen Delivery Method 05/07/23 19:35 05/07/23 19:40 05/07/23 19:45 Temperature Pulse Rate 91 H 93 H 93 H Respiratory Rate Blood Pressure 115/55 L 110/52 L 111/55 L Blood Pressure [Left Arm] Pulse Oximetry 95 97 97 Oxygen Delivery Method 05/07/23 19:50 05/07/23 19:55 05/07/23 20:00 Temperature Pulse Rate 93 H 94 H 93 H Respiratory Rate Blood Pressure 112/57 L 111/52 L 104/53 L Blood Pressure [Left Arm] Pulse Oximetry 97 97 96 Oxygen Delivery Method 05/07/23 20:05 05/07/23 20:10 05/07/23 20:15 Temperature Pulse Rate 88 89 90 Respiratory Rate Blood Pressure 100/52 L 103/48 L 107/50 L Blood Pressure [Left Arm] Pulse Oximetry 96 95 Oxygen Delivery Method 05/07/23 20:20 05/07/23 20:25 05/07/23 20:30 Temperature Pulse Rate 89 88 88 Respiratory Rate Blood Pressure 106/51 L 108/50 L 105/49 L Blood Pressure [Left Arm] Pulse Oximetry 96 96 96 Oxygen Delivery Method 05/07/23 20:35 05/07/23 20:40 05/08/23 06:23 Temperature 96.9 F L Pulse Rate 87 83 92 H Respiratory Rate 18 Blood Pressure 105/47 L 106/51 L Blood Pressure [Left Arm] 101/55 L Pulse Oximetry 97 96 94 L Oxygen Delivery Method Room Air 05/07/23 20:40 05/07/23 20:45 05/07/23 20:50 Temperature Pulse Rate 86 86 85 Respiratory Rate Blood Pressure 106/51 L 112/49 L 109/50 L Blood Pressure [Left Arm] Pulse Oximetry 96 97 96 Oxygen Delivery Method 05/07/23 20:55 05/07/23 21:00 05/07/23 21:05 Temperature Pulse Rate 85 88 86 Respiratory Rate Blood Pressure 109/50 L 110/49 L 115/46 L Blood Pressure [Left Arm] Pulse Oximetry 97 97 97 Oxygen Delivery Method 05/07/23 21:10 05/07/23 21:15 05/07/23 21:20 Temperature Pulse Rate 84 86 87 Respiratory Rate Blood Pressure 109/48 L 110/47 L 108/52 L Blood Pressure [Left Arm] Pulse Oximetry 97 97 96 Oxygen Delivery Method 05/07/23 21:25 05/07/23 21:30 05/07/23 21:35 Temperature Pulse Rate 86 84 88 Respiratory Rate Blood Pressure 107/53 L 108/51 L 106/52 L Blood Pressure [Left Arm] Pulse Oximetry 97 97 97 Oxygen Delivery Method 05/07/23 21:40 05/07/23 21:50 05/07/23 22:00 Temperature Pulse Rate 87 84 89 Respiratory Rate Blood Pressure 107/59 L 107/52 L 108/53 L Blood Pressure [Left Arm] Pulse Oximetry 97 98 98 Oxygen Delivery Method 05/07/23 22:10 05/07/23 22:20 05/07/23 22:30 Temperature Pulse Rate 88 88 89 Respiratory Rate Blood Pressure 112/52 L 114/47 L 112/49 L Blood Pressure [Left Arm] Pulse Oximetry 97 97 97 Oxygen Delivery Method 05/07/23 22:40 05/07/23 22:50 05/07/23 23:00 Temperature Pulse Rate 87 71 88 Respiratory Rate Blood Pressure 111/52 L 102/51 L 108/48 L Blood Pressure [Left Arm] Pulse Oximetry 97 96 96 Oxygen Delivery Method 05/07/23 23:10 05/07/23 23:20 05/07/23 23:30 Temperature Pulse Rate 89 94 H 89 Respiratory Rate 17 17 Blood Pressure 106/50 L 111/51 L 101/49 L Blood Pressure [Left Arm] Pulse Oximetry 97 96 95 Oxygen Delivery Method 05/07/23 23:40 05/07/23 23:50 05/07/23 23:50 Temperature Pulse Rate 91 H 90 92 H Respiratory Rate 16 16 18 Blood Pressure 102/52 L 106/49 L 106/49 L Blood Pressure [Left Arm] Pulse Oximetry 95 95 95 Oxygen Delivery Method 05/08/23 00:00 05/08/23 00:10 05/08/23 00:20 Temperature Pulse Rate 88 89 89 Respiratory Rate 17 18 17 Blood Pressure 107/52 L 104/50 L 104/52 L Blood Pressure [Left Arm] Pulse Oximetry 94 L 95 95 Oxygen Delivery Method 05/08/23 00:30 05/08/23 00:40 05/08/23 00:50 Temperature Pulse Rate 88 88 90 Respiratory Rate 17 16 16 Blood Pressure 104/54 L 102/55 L 100/53 L Blood Pressure [Left Arm] Pulse Oximetry 95 95 95 Oxygen Delivery Method 05/08/23 01:00 05/08/23 01:00 05/08/23 01:10 Temperature Pulse Rate 82 87 90 Respiratory Rate 16 17 16 Blood Pressure 101/50 L 101/50 L 99/49 L Blood Pressure [Left Arm] Pulse Oximetry 94 L 95 95 Oxygen Delivery Method 05/08/23 01:20 05/08/23 01:30 05/08/23 01:40 Temperature Pulse Rate 90 91 H 93 H Respiratory Rate 17 16 16 Blood Pressure 103/54 L 106/57 L 106/53 L Blood Pressure [Left Arm] Pulse Oximetry 95 95 95 Oxygen Delivery Method 05/08/23 01:50 05/08/23 02:00 05/08/23 02:10 Temperature Pulse Rate 93 H 92 H 94 H Respiratory Rate 16 15 17 Blood Pressure 106/53 L 105/52 L 106/51 L Blood Pressure [Left Arm] Pulse Oximetry 95 95 95 Oxygen Delivery Method 05/08/23 02:20 05/08/23 02:30 05/08/23 02:40 Temperature Pulse Rate 92 H 94 H 94 H Respiratory Rate 15 15 15 Blood Pressure 105/54 L 107/53 L 107/52 L Blood Pressure [Left Arm] Pulse Oximetry 95 95 95 Oxygen Delivery Method 05/08/23 02:50 05/08/23 03:00 05/08/23 04:05 Temperature Pulse Rate 94 H 94 H Respiratory Rate 16 16 Blood Pressure 104/54 L 108/54 L Blood Pressure [Left Arm] Pulse Oximetry 95 95 95 Oxygen Delivery Method Room Air 05/08/23 05:10 05/08/23 11:18 Temperature 96.9 F L Pulse Rate 94 H Respiratory Rate 16 Blood Pressure 107/56 L Blood Pressure [Left Arm] Pulse Oximetry 94 L 93 L Oxygen Delivery Method Room Air Room Air Urinary Catheter Management Urinary Catheter Management 2-way Urethral: Cath placed during this visit: no
[2023-05-08 12:35] LABS: Prothrombin Time 14.6 sec (9.0-11.6)
--- NOTE | 2023-05-08 13:49 | SWNOTE1 ---
SW received call from nursing in ICU, family would like to move forward with [facility]. SW sent referral.
--- NOTE | 2023-05-08 15:54 | SWNOTE1 ---
SW spoke with daughter to confirm she wants Hospice, daughter was not sure as she felt pt was going to pt away tonight. SW let pt's daughter know it may still be beneficial to have Hospice come in and assess and be there for extra support. Pt's daughter agreeable. SW called back Hospice to let them know family does want them to come. Hospice will call back with time.
== END 2023-05-08 21:50 | disposition expired | DRG 689 ==
LOC: MS 05-06 16:32 → ICU 05-07 13:15
PROVIDERS: Admitting Provider Family Medicine; PCP Family Medicine; Visit Provider Family Medicine
DX: N39.0 Urinary tract infection, site not specified (principal); E43 Unspecified severe protein-calorie malnutrition; K91.840 Postprocedural hemorrhage of a digestive system organ or structure following a digestive system procedure; D62 Acute posthemorrhagic anemia; N17.9 Acute kidney failure, unspecified; C22.8 Malignant neoplasm of liver, primary, unspecified as to type; K74.00 Hepatic fibrosis, unspecified; N18.2 Chronic kidney disease, stage 2 (mild); I95.9 Hypotension, unspecified; R00.0 Tachycardia, unspecified; R13.10 Dysphagia, unspecified; Z66 Do not resuscitate; Z51.5 Encounter for palliative care; Z68.24 Body mass index [BMI] 24.0-24.9, adult; R16.0 Hepatomegaly, not elsewhere classified; Y84.8 Other medical procedures as the cause of abnormal reaction of the patient, or of later complication, without mention of misadventure at the time of the procedure; K76.89 Other specified diseases of liver; R10.9 Unspecified abdominal pain; R79.89 Other specified abnormal findings of blood chemistry; Z79.82 Long term (current) use of aspirin; Z79.52 Long term (current) use of systemic steroids; Z79.899 Other long term (current) drug therapy
CPT/HCPCS: 36415; 36430; 36569; 36592; 47000; 70450; 71045; 74176; 74177; 80053; 81001; 81003; 82140; 82150; 82550; 82553; 83605; 83690; 83735; 83880; 84484; 85007; 85025; 85610; 85730; 86677; 86850; 86900; 86901; 86927; 87086; 87106; 87493; 87507; 88307; 88341; 88342; 92526; 92610; 93308; 94761; 96365; 96366; 96367; 96368; 96375; 96376; 97110; 97162; 97165; 97530; C1887; G0328; G0378; G0379; P9016; P9017; P9047; Q9966